=== PATIENT | female | born 1965 | race American Indian/Alaskan Native ===

== ENCOUNTER 2017-03-31 10:46 | Emergency (ER) | payer MEDICAID ==
[2017-03-31 11:15] VITALS: BP 151/90
[2017-03-31] MEDS ORDERED: MOTRIN PO ONE (11:50)
[2017-03-31] MEDS ORDERED: ZOFRAN ODT PO ONE (11:50)
[2017-03-31] MEDS ORDERED: DELTASONE PO ONE (11:50)
--- NOTE | 2017-03-31 11:50 | Emergency Department Report ---
HPI - General Chief Complaint: Upper Respiratory Infection Time Seen by Provider: 03/31/17 11:26 - HPI HPI: Patient is a 51-year-old female with no prior medical history who presents to ED complaining of nonproductive cough and intermittent, fever, sore throat, runny nose, sneezing 2 days. Patient states she took TheraFlu yesterday that gave her some relief. She denies chest pain, shortness of breath or any other pertinent symptoms ED Past Medical Hx - Past Medical History Additional medical history: sickle cell trait - Surgical History Additional Surgical History: - Social History Smoking Status: Never Smoker Substance Use Type: Alcohol - Medications Home Medications: Home Medications Medication Instructions Recorded Confirmed Last Taken Type D-Methorphan/PE/Acetaminophen 1 each PO BID #20 tablet 03/31/17 Unknown Rx [Tylenol Cold Multi-Symp Caplet] Ibuprofen [Motrin] 800 mg PO Q8HR PRN #20 tablet 03/31/17 Unknown Rx guaiFENesin/DEXTROMETHORPHAN 5 ml PO TID #1 bottle 03/31/17 Unknown Rx [Robitussin Cough-Chest Dm Liq] ED Review of Systems ROS: Stated complaint: VOMITING, SORE THROAT, HEADACHE Other details as noted in HPI Constitutional: denies: chills, fever Eyes: denies: eye pain, eye discharge, vision change ENT: throat pain, congestion. denies: ear pain, dental pain, hearing loss Respiratory: cough. denies: shortness of breath, wheezing Cardiovascular: denies: chest pain, palpitations Endocrine: no symptoms reported Gastrointestinal: vomiting (one episode last night from couging). denies: abdominal pain, nausea, diarrhea Genitourinary: denies: urgency, dysuria, discharge Musculoskeletal: denies: back pain, joint swelling, arthralgia Skin: denies: rash, lesions Neurological: denies: headache, weakness, paresthesias Psychiatric: denies: anxiety, depression Hematological/Lymphatic: denies: easy bleeding, easy bruising Physical Exam - Physical Exam Vital Signs: Vital Signs 03/31/17 11:12 Temperature 98.1 F Pulse Rate 94 H Respiratory 18 Rate Blood Pressure 151/90 O2 Sat by Pulse 98 Oximetry Physical Exam: GENERAL: Alert and oriented x3, no apparent distress, Normal Gait, atraumatic. HEAD: Head is normocephalic and a-traumatic. EYES: Extra ocular muscles are intact. Pupils are equal, round, and reactive to light and accommodation. EARS: symetrical, atraumatic, non tender, ear canal clear and moderate cerumen, tympanic membrance non inflamed. gross auditory nml bilaterally. NOSE: Nose symetrical, Nontender,Nares appeared normal. MOUTH:Mouth is well hydrated and without lesions. Tonsils nonerythematous or swollen, Uvula midline, Tongue not elevated. Mucous membranes are moist. Posterior pharynx clear, no exudate or lesions. Patent airways. NECK: Supple. Non edematous, No lymphadenopathy or thyromegaly. No C-spine tenderness LUNGS: Symetrical with respiration, No wheezing, no rales or crackles, CTAB. HEART: S1, S2 present, regular rate and rhythm without murmur, no rubs, no gallops. Non tender to palpation . SKIN: Warm and dry, No lesions, No ulceration or induration present. ED Course Vital Signs 03/31/17 11:12 Temperature 98.1 F Pulse Rate 94 H Respiratory 18 Rate Blood Pressure 151/90 O2 Sat by Pulse 98 Oximetry ED Medical Decision Making - Medical Decision Making This 21-year-old female presents with upper respiratory infection ED course: Patient received prednisone, Motrin, in ED. Rapid influenza test performed. Rapid influenza AMB negative Discussed findings with patient. Discussed plenty of rest, fluid intake, symptomatic relief. Discussed symptoms may persist for up to 2 weeks Discussed the follow-up with primary care physician. Vital signs are normal patient is afebrile and in no acute distress during ED stay. Discussed proper rest at home and if any worsening symptoms to return to ED Critical care attestation.: If time is entered above; I have spent that time in minutes in the direct care of this critically ill patient, excluding procedure time. ED Disposition Clinical Impression: URI (upper respiratory infection) Qualifiers: URI type: unspecified URI Qualified Code(s): J06.9 - Acute upper respiratory infection, unspecified Disposition: - TO HOME OR SELFCARE Is pt being admited?: No Does the pt Need Aspirin: No Condition: Stable Instructions: Upper Respiratory Infection (ED), Acute Bronchitis (ED), Cold Symptoms (ED) Additional Instructions: Rest, increase her fluids. Follow-up to primary care physician. If your symptoms symptoms worsen please return to ED. Prescriptions: D-Methorphan/PE/Acetaminophen [Tylenol Cold Multi-Symp Caplet] 1 each PO BID # 20 tablet guaiFENesin/DEXTROMETHORPHAN [Robitussin Cough-Chest Dm Liq] 5 ml PO TID #1 bottle Ibuprofen [Motrin] 800 mg PO Q8HR PRN #20 tablet PRN Reason: Pain Referrals: LEOPOLDO WILLIAMSON MD [Referring] - 3-5 Days [facility] [Outside] - 3-5 Days Forms: Work/School Release Form(ED) Time of Disposition: 12:18
[2017-04-01] MEDS ORDERED: NACL ONE (12:10)
== END 2017-03-31 12:25 | disposition home or self-care (01) ==
LOC: ED 10:46
DX: J06.9 Acute upper respiratory infection, unspecified (principal)
CPT/HCPCS: 87400; 99282; J7512; Q0162

== ENCOUNTER 2017-06-18 14:02 | Emergency (ER) | payer MEDICAID ==
[2017-06-18] MEDS ORDERED: TYLENOL PO ONE (14:40)
[2017-06-18] MEDS ORDERED: MOTRIN PO ONE (18:00)
--- NOTE | 2017-06-18 18:00 | Emergency Department Report ---
Blank Doc - Documentation Documentation: Patient is a 51-year-old black female who is presenting with a cough cold congestion and body aches headache sore throat. Patient states the cough is productive of a clear sputum sputum. Patient presented febrile slight tachycardia most like secondary to her fever. Patient is not having nausea vomiting at this time. Patient will have a chest x-ray performed rule out atypical pneumonia as well as a rapid strep test. If these are negative patient most likely has flu or flulike illness.
--- NOTE | 2017-06-18 18:40 | XRay Report ---
FINAL REPORT PROCEDURE: XR CHEST ROUTINE 2V TECHNIQUE: PA and lateral chest radiographs were obtained. CPT 85673 HISTORY: cough COMPARISON: No prior studies are available for comparison. FINDINGS: Heart size upper normal. The pulmonary vasculature appears normal. No evidence of pulmonary edema or pleural effusion. Lungs are mildly hypoventilated. The diaphragms are mildly elevated. There appears to be some minimal basilar atelectasis. There is no dense consolidations effusions or masses identified. No acute bony abnormalities are seen. IMPRESSION: Lungs are hypoventilated. There appears to be some minimal basilar atelectasis. Heart size upper normal. No other abnormalities are identified..
[2017-06-18 19:40] VITALS: BP 127/76
--- NOTE | 2017-06-18 20:28 | Emergency Department Report ---
- General Chief Complaint: Upper Respiratory Infection Stated Complaint: HEADACHE Time Seen by Provider: 06/18/17 17:55 Source: patient Mode of arrival: Ambulatory Limitations: No Limitations - History of Present Illness Initial Comments: This is a 51-year-old female nontoxic, well nourished in appearance, no acute signs of distress presents to the ED with c/o of productive cough, fever, chills , body aches, rhinorrhea, sore throat, nasal congestion x2 days. Patient describes productive cough as yellow mucus production. Patient stated has been in close contact with son that is diagnosed with the flu. Patient denies any recent travels, long car, recent hospital stays. Patient denies any calf pain or calf tenderness. Patient denies any chest pain, short of breath, fever, chills, nausea, vomiting, hemoptysis, numbness, tingling, headache or stiff neck. Patient denies any drug allergies. Patient states allergies to codeine. PMH includes sick cell trait. MD Complaint: fever, cough, sore throat, rhinorrhea, nasal congestion -: days(s) (2) Severity: mild Severity scale (0 -10): 8 Quality: aching Consistency: constant Improves With: nothing Worsens With: nothing Context: sick contacts Associated Symptoms: fever, chills, rhinorrhea, nasal congestion, sore throat, cough. denies: myalgias, diaphoresis, headache, stiff neck, chest pain, shortness of breath, abdominal pain, nausea, vomiting, diarrhea, dysuria, rash, confusion, right sweats, weight loss, epistaxis, hoarseness, ear pain Treatments Prior to Arrival: none - Related Data Previous Rx's Medication Instructions Recorded Last Taken Type D-Methorphan/PE/Acetaminophen 1 each PO BID #20 tablet 03/31/17 Unknown Rx [Tylenol Cold Multi-Symp Caplet] Ibuprofen [Motrin] 800 mg PO Q8HR PRN #20 tablet 03/31/17 Unknown Rx guaiFENesin/DEXTROMETHORPHAN 5 ml PO TID #1 bottle 03/31/17 Unknown Rx [Robitussin Cough-Chest Dm Liq] Azithromycin [Zithromax Z-BEE] 250 mg PO DAILY #6 tablet 06/18/17 Unknown Rx Benzonatate [Tessalon Perle] 100 mg PO Q6H PRN #20 capsule 06/18/17 Unknown Rx Ibuprofen [Motrin] 600 mg PO Q8H PRN #30 tablet 06/18/17 Unknown Rx Oseltamivir [Tamiflu] 75 mg PO BID #14 cap 06/18/17 Unknown Rx Allergies Allergy/AdvReac Type Severity Reaction Status Date / Time codeine AdvReac Nausea Verified 03/31/17 11:14 ED Review of Systems ROS: Stated complaint: HEADACHE Other details as noted in HPI Constitutional: chills, fever Eyes: denies: eye pain, eye discharge, vision change ENT: throat pain. denies: ear pain Respiratory: cough. denies: shortness of breath, wheezing Cardiovascular: denies: chest pain, palpitations Endocrine: no symptoms reported Gastrointestinal: denies: abdominal pain, nausea, diarrhea Genitourinary: denies: urgency, dysuria, discharge Musculoskeletal: denies: back pain, joint swelling, arthralgia Skin: denies: rash, lesions Neurological: denies: headache, weakness, paresthesias Psychiatric: denies: anxiety, depression Hematological/Lymphatic: denies: easy bleeding, easy bruising ED Past Medical Hx - Past Medical History Previous Medical History?: Yes Additional medical history: sickle cell trait - Surgical History Past Surgical History?: Yes Additional Surgical History: - Social History Smoking Status: Never Smoker Substance Use Type: Alcohol - Medications Home Medications: Home Medications Medication Instructions Recorded Confirmed Last Taken Type D-Methorphan/PE/Acetaminophen 1 each PO BID #20 tablet 03/31/17 Unknown Rx [Tylenol Cold Multi-Symp Caplet] Ibuprofen [Motrin] 800 mg PO Q8HR PRN #20 tablet 03/31/17 Unknown Rx guaiFENesin/DEXTROMETHORPHAN 5 ml PO TID #1 bottle 03/31/17 Unknown Rx [Robitussin Cough-Chest Dm Liq] Azithromycin [Zithromax Z-BEE] 250 mg PO DAILY #6 tablet 06/18/17 Unknown Rx Benzonatate [Tessalon Perle] 100 mg PO Q6H PRN #20 capsule 06/18/17 Unknown Rx Ibuprofen [Motrin] 600 mg PO Q8H PRN #30 tablet 06/18/17 Unknown Rx Oseltamivir [Tamiflu] 75 mg PO BID #14 cap 06/18/17 Unknown Rx ED Physical Exam - General Limitations: No Limitations General appearance: alert, in no apparent distress - Head Head exam: Present: atraumatic, normocephalic - Eye Eye exam: Present: normal appearance, PERRL, EOMI Pupils: Present: normal accommodation - ENT ENT exam: Present: mucous membranes moist, TM's normal bilaterally, normal external ear exam - Expanded ENT Exam Expanded Ear exam: Present: normal external inspection Mouth exam: Present: normal external inspection, tongue normal. Absent: drooling, trismus, muffled voice, tongue elevation, laceration Teeth exam: Present: normal inspection Throat exam: Positive: tonsillar erythema, other (Uvula midline. No abscess or swelling noted. ). Negative: tonsillomegaly, tonsillar exudate, R peritonsillar mass, L peritonsillar mass - Neck Neck exam: Present: normal inspection, full ROM. Absent: tenderness, meningismus, lymphadenopathy, thyromegaly - Respiratory Respiratory exam: Present: normal lung sounds bilaterally. Absent: respiratory distress, wheezes, rales, rhonchi, stridor, chest wall tenderness, accessory muscle use, decreased breath sounds, prolonged expiratory - Cardiovascular Cardiovascular Exam: Present: regular rate, normal rhythm, normal heart sounds. Absent: irregular rhythm, systolic murmur, diastolic murmur, rubs, gallop - GI/Abdominal GI/Abdominal exam: Present: soft, normal bowel sounds. Absent: distended, tenderness, guarding, rebound, rigid, diminished bowel sounds - Rectal Rectal exam: Present: deferred - Extremities Exam Extremities exam: Present: normal inspection, full ROM, normal capillary refill. Absent: tenderness, pedal edema, joint swelling, calf tenderness - Back Exam Back exam: Present: normal inspection, full ROM. Absent: tenderness, CVA tenderness (R), CVA tenderness (L), muscle spasm, paraspinal tenderness, vertebral tenderness, rash noted - Neurological Exam Neurological exam: Present: alert, oriented X3, CN II-XII intact, normal gait, reflexes normal - Psychiatric Psychiatric exam: Present: normal affect, normal mood - Skin Skin exam: Present: warm, dry, intact, normal color. Absent: rash ED Course Vital Signs 06/18/17 06/18/17 14:36 19:39 Temperature 101.6 F H 98.6 F Pulse Rate 112 H 88 Respiratory 16 18 Rate Blood Pressure 135/88 Blood Pressure 127/76 [Right] O2 Sat by Pulse 96 97 Oximetry - Reevaluation(s) Reevaluation #1: 06/18/17 20:27 Patient is speaking in full sentences with no signs of distress noted. - Consultations Consultation #1: 06/18/17 20:31 Patient has been consulted with Dr. Vogt about patient history, physical exam , and labs and examined and screened patient and agrees to ED plan of care and discharge plan of care. ED Medical Decision Making - Medical Decision Making This is a 51-year-old female that presents with upper respiratory infection and influenza. Patient is stable and was examined by me and Dr. Vogt. Chest x- ray has been obtained and dictated by radiologist with normal exam. Patient is notified of x-ray results with no questions noted. Patient is in close contact with son that is dx with the flu. Due to patient having symptoms of influenza and upper respiratory infection I will treat patient empirically with Tamiflu and zpak. Patient was instructed to increase hydration, rest and take Motrin for fever episodes. Patient received Toradol, Tylenol, and tesslone perrls in the ED. Vitals stable. Patient is nonfebrile and normal heart rate. Patient was orally hydrated and patient tolerated well known nausea or vomiting. Patient was instructed Follow-up with a primary care doctor in 3-5 days or if symptoms worsen and continue return to emergency room as soon as possible. At time time of discharge, the patient does not seem toxic or ill in appearance. No acute signs of distress noted. Patient agrees to discharge treatment plan of care. No further questions noted by the patient. Critical care attestation.: If time is entered above; I have spent that time in minutes in the direct care of this critically ill patient, excluding procedure time. ED Disposition Clinical Impression: Influenza Upper respiratory infection Qualifiers: URI type: unspecified URI Qualified Code(s): J06.9 - Acute upper respiratory infection, unspecified Disposition: DC-01 TO HOME OR SELFCARE Is pt being admited?: No Does the pt Need Aspirin: No Condition: Stable Instructions: Upper Respiratory Infection (ED), Influenza (ED), Azithromycin ( By mouth), Electrolyte Supplement (By mouth), Ibuprofen (By mouth), Benzonatate (By mouth), Oseltamivir (By mouth), Fever in Adults (ED) Additional Instructions: Follow-up with a primary care doctor in 3-5 days or if symptoms worsen and continue return to emergency room as soon as possible. Increase rest, hydration and take Motrin for fever episodes. Prescriptions: Azithromycin [Zithromax Z-BEE] 250 mg PO DAILY #6 tablet Benzonatate [Tessalon Perle] 100 mg PO Q6H PRN #20 capsule PRN Reason: Cough Ibuprofen [Motrin] 600 mg PO Q8H PRN #30 tablet PRN Reason: Fever Oseltamivir [Tamiflu] 75 mg PO BID #14 cap Referrals: PRIMARY CARE, [Primary Care Provider] - 3-5 Days CHOLO ANNA MD [Staff Physician] - 3-5 Days [facility] [Outside] - 3-5 Days [facility] [Outside] - 3-5 Days Forms: Work/School Release Form(ED)
== END 2017-06-18 20:44 | disposition home or self-care (01) ==
LOC: ED 14:02
DX: J11.1 Influenza due to unidentified influenza virus with other respiratory manifestations (principal); Z88.6 Allergy status to analgesic agent
CPT/HCPCS: 71046; 87430; 99283

== ENCOUNTER 2020-05-18 11:21 | Emergency (ER) | payer MEDICAID ==
[2020-05-18 11:32] VITALS: BP 103/61
--- NOTE | 2020-05-18 11:45 | Emergency Department Report ---
ED General Adult HPI - General Chief complaint: Upper Respiratory Infection Stated complaint: COUGH; SORE THROAT Time Seen by Provider: 05/18/20 11:29 Source: patient Mode of arrival: Ambulatory Limitations: No Limitations - History of Present Illness Initial comments: 54-year-old -[place] female patient presents with complaints of cough x1.5 weeks. Patient states the cough is productive of clear sputum and denies any shortness of breath, chest pain, fever/chills/sweats, hemoptysis, or leg pain/swelling. Patient has history of liver cirrhosis secondary to alcohol, however states she no longer consumes alcohol. She denies any heartburn and states the cough does get worse at night. No recent known sick contacts per patient or loss of taste/smell, abdominal pain, or nausea/vomiting/diarrhea. Patient reports OTC medication is not helping. She also states she has a mild sore throat that occurs with the cough Severity scale (0 -10): 0 - Related Data Previous Rx's Medication Instructions Recorded Last Taken Type D-Methorphan/PE/Acetaminophen 1 each PO BID #20 tablet 03/31/17 Unknown Rx [Tylenol Cold Multi-Symp Caplet] Ibuprofen [Motrin] 800 mg PO Q8HR PRN #20 tablet 03/31/17 Unknown Rx Azithromycin [Zithromax Z-BEE] 250 mg PO DAILY #6 tablet 06/18/17 Unknown Rx Benzonatate [Tessalon Perle] 100 mg PO Q6H PRN #20 capsule 06/18/17 Unknown Rx Ibuprofen [Motrin] 600 mg PO Q8H PRN #30 tablet 06/18/17 Unknown Rx Oseltamivir [Tamiflu] 75 mg PO BID #14 cap 06/18/17 Unknown Rx Benzonatate 200 mg PO TID PRN #30 capsule 05/18/20 Unknown Rx Loratadine 10 mg PO QDAY PRN #10 tablet 05/18/20 Unknown Rx guaiFENesin/DEXTROMETHORPHAN 5 ml PO TID #1 bottle 05/18/20 Unknown Rx [Robitussin Cough-Chest Dm Liq] Allergies Allergy/AdvReac Type Severity Reaction Status Date / Time codeine AdvReac Nausea Verified 03/31/17 11:14 ED Review of Systems ROS: Stated complaint: COUGH; SORE THROAT Other details as noted in HPI Constitutional: denies: chills, diaphoresis, fever, malaise, weakness ENT: as per HPI. denies: ear pain Respiratory: cough. denies: shortness of breath Cardiovascular: denies: chest pain Gastrointestinal: denies: abdominal pain, diarrhea Skin: denies: change in color Neurological: denies: headache ED Past Medical Hx - Past Medical History Previous Medical History?: Yes Hx Liver Disease: Yes (cirrhosis) Additional medical history: sickle cell trait - Surgical History Past Surgical History?: Yes Additional Surgical History: - Social History Smoking Status: Never Smoker Substance Use Type: Alcohol - Medications Home Medications: Home Medications Medication Instructions Recorded Confirmed Last Taken Type D-Methorphan/PE/Acetaminophen 1 each PO BID #20 tablet 03/31/17 Unknown Rx [Tylenol Cold Multi-Symp Caplet] Ibuprofen [Motrin] 800 mg PO Q8HR PRN #20 tablet 03/31/17 Unknown Rx Azithromycin [Zithromax Z-BEE] 250 mg PO DAILY #6 tablet 06/18/17 Unknown Rx Benzonatate [Tessalon Perle] 100 mg PO Q6H PRN #20 capsule 06/18/17 Unknown Rx Ibuprofen [Motrin] 600 mg PO Q8H PRN #30 tablet 06/18/17 Unknown Rx Oseltamivir [Tamiflu] 75 mg PO BID #14 cap 06/18/17 Unknown Rx Benzonatate 200 mg PO TID PRN #30 capsule 05/18/20 Unknown Rx Loratadine 10 mg PO QDAY PRN #10 tablet 05/18/20 Unknown Rx guaiFENesin/DEXTROMETHORPHAN 5 ml PO TID #1 bottle 05/18/20 Unknown Rx [Robitussin Cough-Chest Dm Liq] ED Physical Exam - General Limitations: No Limitations General appearance: alert, in no apparent distress - Head Head exam: Present: atraumatic, normocephalic - Eye Eye exam: Present: normal appearance. Absent: scleral icterus - Neck Neck exam: Present: normal inspection - Respiratory Respiratory exam: Present: normal lung sounds bilaterally. Absent: respiratory distress, wheezes, rales, rhonchi, chest wall tenderness - Cardiovascular Cardiovascular Exam: Present: regular rate, normal rhythm. Absent: systolic murmur, diastolic murmur, rubs, gallop - GI/Abdominal GI/Abdominal exam: Present: soft. Absent: tenderness - Extremities Exam Extremities exam: Absent: calf tenderness (no swelling noted bilaterally ) - Back Exam Back exam: Present: full ROM - Neurological Exam Neurological exam: Present: alert, oriented X3 - Psychiatric Psychiatric exam: Present: normal affect, normal mood - Skin Skin exam: Present: warm, dry, intact, normal color. Absent: rash ED Course Vital Signs 05/18/20 11:28 Temperature 98.1 F Pulse Rate 76 Respiratory 18 Rate Blood Pressure 103/61 [Right] O2 Sat by Pulse 100 Oximetry ED Medical Decision Making - Radiology Data Radiology results: report reviewed CHEST 2 VIEWS INDICATION / CLINICAL INFORMATION: Productive cough for 2 weeks. COMPARISON: 06/18/17. FINDINGS: SUPPORT DEVICES: None. HEART / MEDIASTINUM: The heart size is borderline. Pulmonary vasculature is normal. LUNGS / PLEURA: No significant pulmonary or pleural abnormality. No pneumothorax. ADDITIONAL FINDINGS: No significant additional findings. IMPRESSION: No acute abnormality or significant change. No evidence of pneumonia. - Medical Decision Making 54-year-old -[place] female patient presents with complaints of cough x1.5 weeks. Patient states the cough is productive of clear sputum and denies any shortness of breath, chest pain, fever/chills/sweats, hemoptysis, or leg pain/swelling. Patient has history of liver cirrhosis secondary to alcohol, however states she no longer consumes alcohol. She denies any heartburn and states the cough does get worse at night. No recent known sick contacts per patient or loss of taste/smell, abdominal pain, or nausea/vomiting/diarrhea. Patient reports OTC medication is not helping. She also states she has a mild sore throat that occurs with the cough Lung exam is normal. Chest x-ray is negative for any acute abnormalities. Vitals are normal and patient is well-appearing and stable for discharge home. Will treat for viral URI with loratadine, benzonatate, and guaifenesin/dextromethorphan. Recommend follow-up with primary care in 3 to 5 days. Discussed strict return precautions in detail with patient who verbalizes understanding. Critical care attestation.: If time is entered above; I have spent that time in minutes in the direct care of this critically ill patient, excluding procedure time. ED Disposition Clinical Impression: Cough Disposition: DC-01 TO HOME OR SELFCARE Is pt being admited?: No Condition: Stable Instructions: Viral Respiratory Infection Prescriptions: Benzonatate 200 mg PO TID PRN #30 capsule PRN Reason: Cough Loratadine 10 mg PO QDAY PRN #10 tablet PRN Reason: Cough guaiFENesin/DEXTROMETHORPHAN [Robitussin Cough-Chest Dm Liq] 5 ml PO TID #1 bottle Referrals: [facility] [Provider Group] - 3-5 Days
--- NOTE | 2020-05-18 11:52 | XRay Report ---
CHEST 2 VIEWS INDICATION / CLINICAL INFORMATION: Productive cough for 2 weeks. COMPARISON: 06/18/17. FINDINGS: SUPPORT DEVICES: None. HEART / MEDIASTINUM: The heart size is borderline. Pulmonary vasculature is normal. LUNGS / PLEURA: No significant pulmonary or pleural abnormality. No pneumothorax. ADDITIONAL FINDINGS: No significant additional findings. IMPRESSION: No acute abnormality or significant change. No evidence of pneumonia. Signer Name: Fredrick Baez MD Signed: 05/18/2020 11:47 AM Workstation Name: [id number]
== END 2020-05-18 13:05 | disposition home or self-care (01) ==
LOC: ED 11:21
DX: R05 Cough (principal); J02.9 Acute pharyngitis, unspecified; Z98.890 Other specified postprocedural states; Z79.1 Long term (current) use of non-steroidal anti-inflammatories (NSAID); Z79.2 Long term (current) use of antibiotics; Z79.899 Other long term (current) drug therapy; Z88.8 Allergy status to other drugs, medicaments and biological substances
CPT/HCPCS: 71046

== ENCOUNTER 2021-09-27 02:11 | Inpatient (IN) | payer MEDICAID ==
[2021-09-27] MEDS ORDERED: ASPIRIN 325 MG TAB PO ONE (02:28)
[2021-09-27] MEDS ORDERED: ONDANSETRON 4 MG/2 ML INJ IV ONE ×2 (02:52→07:03)
[2021-09-27] MEDS ORDERED: SODIUM CHLORIDE 0.9% 1000 ML 1,000 ML IV ONE (02:52)
[2021-09-27] MEDS ORDERED: PANTOPRAZOLE 40 MG INJ IV ONE (02:52)
[2021-09-27] MEDS ORDERED: PANTOPRAZOLE 80 MG in SODIUM CHLORIDE 0.9% 100 ML IV ONE (02:52)
[2021-09-27 02:54] LABS: Basophils # (Auto) 0.1 K/mm3 (0.0-0.1); Basophils % (Auto) 0.8 % (0.0-1.8); Eosinophils # (Auto) 0.2 K/mm3 (0.0-0.4); Eosinophils % (Auto) 1.9 % (0.0-4.3); Hematocrit 32.3 % (30.3-42.9); Hemoglobin 11.1 gm/dl (10.1-14.3); Lymphocytes # (Auto) 2.3 K/mm3 (1.2-5.4); Lymphocytes % (Auto) 25.8 % (13.4-35.0); Mean Corpuscular HGB Conc 34 % (30-34); Mean Corpuscular Volume 95 fl (79-97); Monocytes # (Auto) 0.7 K/mm3 (0.0-0.8); Monocytes % (Auto) 7.6 % (0.0-7.3); Platelet Count 115 K/mm3 (140-440); Red Blood Count 3.42 M/mm3 (3.65-5.03); Red Cell Distribution Width 14.8 % (13.2-15.2)
[2021-09-27 03:13] LABS: Alanine Aminotransferase 22 units/L (7-56); Albumin 3.4 g/dL (3.9-5); Blood Urea Nitrogen 6 mg/dL (7-17); Calcium 8.4 mg/dL (8.4-10.2); Hemolysis Index 3
--- NOTE | 2021-09-27 03:14 | XRay Report ---
XR chest routine 2V INDICATION / CLINICAL INFORMATION: chest pain. COMPARISON: 05/18/2020 FINDINGS: SUPPORT DEVICES: None. HEART /PULMONARY VASCULATURE: No significant abnormality. LUNGS / PLEURA: No significant pulmonary or pleural abnormality. No pneumothorax. ADDITIONAL FINDINGS: No significant additional findings. IMPRESSION: 1. No acute findings. Signer Name: Ravinder Haynes MD Signed: 09/27/2021 3:10 AM Workstation Name: [id number]
[2021-09-27 03:22] LABS: BUN/Creatinine Ratio 9
[2021-09-27 03:40] LABS: INR 1.58 (0.87-1.13)
--- NOTE | 2021-09-27 04:43 | Emergency Department Report ---
ED General Adult HPI - General Chief complaint: Chest Pain Stated complaint: VOMITING BLOOD, CHEST POUNDING Time Seen by Provider: 09/27/21 02:51 Source: patient Mode of arrival: Ambulatory Limitations: No Limitations - History of Present Illness Initial comments: 55 years old AAF with alcoholic liver cirrhosis here today for vomiting blood, her son 2 days ago in shooting accident and started drinking again since then , has been vomiting red blood with pain in her stomach and chest , no fever no rash , no black stool and no bleeding epr rectum -: Gradual, days(s) Location: abdomen Associated Symptoms: chest pain. denies: denies other symptoms, confusion, headaches, loss of appetite, malaise, nausea/vomiting Treatments Prior to Arrival: none - Related Data Previous Rx's Medication Instructions Recorded Last Taken Type D-Methorphan/PE/Acetaminophen 1 each PO BID #20 tablet 03/31/17 Unknown Rx [Tylenol Cold Multi-Symp Caplet] Ibuprofen [Motrin] 800 mg PO Q8HR PRN #20 tablet 03/31/17 Unknown Rx Azithromycin [Zithromax Z-BEE] 250 mg PO DAILY #6 tablet 06/18/17 Unknown Rx Benzonatate [Tessalon Perle] 100 mg PO Q6H PRN #20 capsule 06/18/17 Unknown Rx Ibuprofen [Motrin] 600 mg PO Q8H PRN #30 tablet 06/18/17 Unknown Rx Oseltamivir [Tamiflu] 75 mg PO BID #14 cap 06/18/17 Unknown Rx Benzonatate 200 mg PO TID PRN #30 capsule 05/18/20 Unknown Rx Loratadine 10 mg PO QDAY PRN #10 tablet 05/18/20 Unknown Rx guaiFENesin/DEXTROMETHORPHAN 5 ml PO TID #1 bottle 05/18/20 Unknown Rx [Robitussin Cough-Chest Dm Liq] Allergies Allergy/AdvReac Type Severity Reaction Status Date / Time codeine AdvReac Nausea Verified 03/31/17 11:14 ED Review of Systems ROS: Stated complaint: VOMITING BLOOD, CHEST POUNDING Other details as noted in HPI Constitutional: denies: chills, fever Eyes: denies: eye pain, eye discharge, vision change ENT: denies: ear pain, throat pain Respiratory: denies: cough, shortness of breath, wheezing Cardiovascular: denies: chest pain, palpitations Endocrine: no symptoms reported Gastrointestinal: denies: abdominal pain, nausea, diarrhea Genitourinary: denies: urgency, dysuria, discharge Musculoskeletal: denies: back pain, joint swelling, arthralgia Skin: denies: rash, lesions Neurological: denies: headache, weakness, paresthesias Psychiatric: denies: anxiety, depression Hematological/Lymphatic: denies: easy bleeding, easy bruising ED Past Medical Hx - Past Medical History Hx Liver Disease: Yes (cirrhosis) Additional medical history: sickle cell trait - Surgical History Additional Surgical History: - Social History Smoking Status: Never Smoker Substance Use Type: Alcohol - Medications Home Medications: Home Medications Medication Instructions Recorded Confirmed Last Taken Type D-Methorphan/PE/Acetaminophen 1 each PO BID #20 tablet 03/31/17 Unknown Rx [Tylenol Cold Multi-Symp Caplet] Ibuprofen [Motrin] 800 mg PO Q8HR PRN #20 tablet 03/31/17 Unknown Rx Azithromycin [Zithromax Z-BEE] 250 mg PO DAILY #6 tablet 06/18/17 Unknown Rx Benzonatate [Tessalon Perle] 100 mg PO Q6H PRN #20 capsule 06/18/17 Unknown Rx Ibuprofen [Motrin] 600 mg PO Q8H PRN #30 tablet 06/18/17 Unknown Rx Oseltamivir [Tamiflu] 75 mg PO BID #14 cap 06/18/17 Unknown Rx Benzonatate 200 mg PO TID PRN #30 capsule 05/18/20 Unknown Rx Loratadine 10 mg PO QDAY PRN #10 tablet 05/18/20 Unknown Rx guaiFENesin/DEXTROMETHORPHAN 5 ml PO TID #1 bottle 05/18/20 Unknown Rx [Robitussin Cough-Chest Dm Liq] ED Physical Exam - General Limitations: No Limitations General appearance: alert, other (actively vomiting ) - Head Head exam: Present: atraumatic, normocephalic - Eye Eye exam: Present: normal appearance - ENT ENT exam: Present: mucous membranes moist - Neck Neck exam: Present: normal inspection - Respiratory Respiratory exam: Present: normal lung sounds bilaterally. Absent: respiratory distress - Cardiovascular Cardiovascular Exam: Present: normal rhythm, tachycardia. Absent: systolic murmur, diastolic murmur, rubs, gallop - GI/Abdominal GI/Abdominal exam: Present: soft, normal bowel sounds - Extremities Exam Extremities exam: Present: normal inspection - Back Exam Back exam: Present: normal inspection - Neurological Exam Neurological exam: Present: alert, oriented X3 - Psychiatric Psychiatric exam: Present: normal affect, normal mood - Skin Skin exam: Present: warm, dry, intact, pallor. Absent: rash ED Course Vital Signs 09/27/21 09/27/21 02:29 04:18 Temperature 97.5 F L Pulse Rate 118 H Respiratory 16 Rate Blood Pressure 137/78 O2 Sat by Pulse 96 98 Oximetry ED Medical Decision Making - Lab Data Result diagrams: 09/27/21 02:37 09/27/21 02:37 - EKG Data -: EKG Interpreted by Vt EKG shows normal: sinus rhythm - EKG Data Interpretation: nonspecific ST-T wave zari - Radiology Data Radiology results: report reviewed, image reviewed - Medical Decision Making vital stable , vomited about half of bag of emesis blood, heme positive rectal heme negative, H.H stable started on PPI bolus and drip , typed and screened , will get GI consult and admit for GI bleed Critical care attestation.: If time is entered above; I have spent that time in minutes in the direct care of this critically ill patient, excluding procedure time. ED Disposition Clinical Impression: Hematemesis Disposition: ADMITTED INPATIENT Is pt being admited?: Yes Does the pt Need Aspirin: No Condition: Fair Referrals: MAKI NASCIMENTO MD [Primary Care Provider] - 3-5 Days
[2021-09-27] MEDS ORDERED: OCTREOTIDE 50 MCG/1 ML INJ IV ONE (04:45)
[2021-09-27 04:59] LABS: Basophils % (Auto) 0.5 % (0.0-1.8); Eosinophils # (Auto) 0.1 K/mm3 (0.0-0.4); Eosinophils % (Auto) 0.8 % (0.0-4.3); Hematocrit 29.3 % (30.3-42.9); Hemoglobin 10.3 gm/dl (10.1-14.3); Lymphocytes # (Auto) 1.1 K/mm3 (1.2-5.4); Lymphocytes % (Auto) 14.2 % (13.4-35.0); Mean Corpuscular HGB Conc 35 % (30-34); Mean Corpuscular Volume 95 fl (79-97); Monocytes # (Auto) 0.6 K/mm3 (0.0-0.8); Monocytes % (Auto) 7.3 % (0.0-7.3); Platelet Count 100 K/mm3 (140-440); Red Blood Count 3.08 M/mm3 (3.65-5.03); Red Cell Distribution Width 14.8 % (13.2-15.2)
[2021-09-27] MEDS: OCTREOTIDE 500 MCG in SODIUM CHLORIDE 0.9% 100 ML IV SCH ×2 (06:04→22:05)
[2021-09-27] MEDS ORDERED: ONDANSETRON 4 MG/2 ML INJ ONE (07:00)
[2021-09-27] MEDS ORDERED: SODIUM CHLORIDE 0.9% 500 ML 500 ML IV SCH (07:30)
[2021-09-27 07:50] LABS: Basophils # (Auto) 0.1 K/mm3 (0.0-0.1); Basophils % (Auto) 0.6 % (0.0-1.8); Eosinophils % (Auto) 0.4 % (0.0-4.3); Hematocrit 25.2 % (30.3-42.9); Hemoglobin 8.5 gm/dl (10.1-14.3); Lymphocytes # (Auto) 3.7 K/mm3 (1.2-5.4); Lymphocytes % (Auto) 31.9 % (13.4-35.0); Mean Corpuscular HGB Conc 34 % (30-34); Mean Corpuscular Volume 95 fl (79-97); Monocytes # (Auto) 0.7 K/mm3 (0.0-0.8); Monocytes % (Auto) 6.5 % (0.0-7.3); Platelet Count 104 K/mm3 (140-440); Red Blood Count 2.65 M/mm3 (3.65-5.03); Red Cell Distribution Width 14.6 % (13.2-15.2)
[2021-09-27] MEDS: METOCLOPRAMIDE 10 MG/2 ML INJ IV PRN ×3 (08:18→19:44)
--- NOTE | 2021-09-27 08:23 | History and Physical Report ---
History of Present Illness Date of examination: 09/27/21 Date of admission: 09/27/2021 Chief complaint: Hematemesis History of present illness: 55-year-old female with past medical history of liver cirrhosis and alcohol dependence presenting to our facility for hematemesis x5 episodes associated with nausea and abdominal pain. Patient states that she had filled keshawn roximately 3 "green bags" with bloody emesis. She states that the last episode she had dark black emesis. Patient states that she has a longstanding history of alcoholism. She resumed drinking alcohol yesterday drinking approximately 4 beers citing a personal tragedy in the family (son ). Remainder of ROS negative except for stated above. Patient has a prior history of EGD. She does not remember findings from EGD but states that she does not want another procedure given her issues with swallowing. I explained to the patient that given her concerning presentation and rapid drop in hemoglobin, I strongly recommend she undergo EGD when approached by our marker machine attendant. PMHx: Esophageal varices, liver cirrhosis, alcoholism, sickle cell trait PSHx: FHx: Reviewed noncontributory SHx: Tobacco use-never smoker ETOH Use-admit, extensive use Recreational Drug Use-denies Follows with Dr. Chavarria for GI care Recent personal tragedy, son from [facility]. Medications and Allergies Allergies Allergy/AdvReac Type Severity Reaction Status Date / Time codeine AdvReac Nausea Verified 03/31/17 11:14 Home Medications Medication Instructions Recorded Confirmed Last Taken Type D-Methorphan/PE/Acetaminophen 1 each PO BID #20 tablet 03/31/17 Unknown Rx [Tylenol Cold Multi-Symp Caplet] Ibuprofen [Motrin] 800 mg PO Q8HR PRN #20 tablet 03/31/17 Unknown Rx Azithromycin [Zithromax Z-BEE] 250 mg PO DAILY #6 tablet 06/18/17 Unknown Rx Benzonatate [Tessalon Perle] 100 mg PO Q6H PRN #20 capsule 06/18/17 Unknown Rx Ibuprofen [Motrin] 600 mg PO Q8H PRN #30 tablet 06/18/17 Unknown Rx Oseltamivir [Tamiflu] 75 mg PO BID #14 cap 06/18/17 Unknown Rx Benzonatate 200 mg PO TID PRN #30 capsule 05/18/20 Unknown Rx Loratadine 10 mg PO QDAY PRN #10 tablet 05/18/20 Unknown Rx guaiFENesin/DEXTROMETHORPHAN 5 ml PO TID #1 bottle 05/18/20 Unknown Rx [Robitussin Cough-Chest Dm Liq] Escitalopram [Lexapro] 5 mg PO QDAY #30 09/27/21 Unknown Rx traZODone [Desyrel] 50 mg PO QHS #30 tab 09/27/21 Unknown Rx Active Meds: Active Medications Pantoprazole Sodium 80 mg/ (Sodium Chloride) 100 mls @ 10 mls/hr IV ONCE ONE Stop: 09/27/21 12:51 Last Admin: 09/27/21 03:54 Dose: 8 mg/hr, 10 mls/hr Octreotide Acetate 500 mcg/ (Sodium Chloride) 101 mls @ 5.05 mls/hr IV TITR RAJESH; Protocol Last Admin: 09/27/21 06:04 Dose: 25 mcg/hr, 5.05 mls/hr Sodium Chloride (Nacl 0.9% 500 Ml) 500 mls @ 0 mls/hr IV ONCE@0730 RAJESH Stop: 09/27/21 11:00 Last Admin: 09/27/21 07:30 Dose: 500 mls/hr Ceftriaxone Sodium (Rocephin/Ns 1 Gm/50 Ml) 1 gm in 50 mls @ 100 mls/hr IV Q24H RAJESH; Protocol Metoclopramide HCl (Metoclopramide 10 Mg/2 Ml Inj) 5 mg IV Q6H PRN PRN Reason: Nausea And Vomiting Last Admin: 09/27/21 08:18 Dose: 5 mg Review of Systems All systems: negative (Except for noted in HPI) Exam - Physical Exam Narrative exam: Physical Exam: VITAL SIGNS: Reviewed. GENERAL: The patient appears normally developed, Vital signs as documented. Mild distress HEAD: No signs of head trauma. EYES: Pupils are equal. Extraocular motions intact. EARS: Hearing grossly intact. MOUTH: Dried blood in oropharynx NECK: No adenopathy, no JVD. CHEST: Chest with clear breath sounds bilaterally. No wheezes, rales, or rhonchi. CARDIAC: Regular rate and rhythm. S1 and S2, without murmurs, gallops, or rubs. VASCULAR: No Edema. Peripheral pulses normal and equal in all extremities. ABDOMEN: Soft, non tender and non distended. No rebound or guarding, and no masses palpated. Bowel Sounds normal. MUSCULOSKELETAL: Good range of motion of all major joints. Extremities without clubbing, cyanosis or edema. NEUROLOGIC EXAM: Alert and oriented x 4. no focal sensory or strength deficits. PSYCHIATRIC: Depressed mood SKIN: detail exam as documented in skin assessment - Constitutional Vitals: Temp Pulse Resp BP Pulse Ox 98.9 F 110 H 18 126/65 99 09/27/21 07:15 09/27/21 07:39 09/27/21 07:39 09/27/21 07:39 09/27/21 07:39 HEART Score - HEART Score Troponin: Troponin T < 0.010 ng/mL (0.00-0.029) 09/27/21 05:08 Results - Labs CBC & Chem 7: 09/27/21 Unknown 09/27/21 02:37 Labs: Laboratory Last Values WBC 11.5 K/mm3 (4.5-11.0) H 09/27/21 Unknown RBC 2.65 M/mm3 (3.65-5.03) L 09/27/21 Unknown Hgb 8.5 gm/dl (10.1-14.3) L 09/27/21 Unknown Hct 25.2 % (30.3-42.9) L 09/27/21 Unknown MCV 95 fl (79-97) 09/27/21 Unknown MCH 32 pg (28-32) 09/27/21 Unknown MCHC 34 % (30-34) 09/27/21 Unknown RDW 14.6 % (13.2-15.2) 09/27/21 Unknown Plt Count 104 K/mm3 (140-440) L 09/27/21 Unknown Lymph % (Auto) 31.9 % (13.4-35.0) 09/27/21 Unknown [place] % (Auto) 6.5 % (0.0-7.3) 09/27/21 Unknown Eos % (Auto) 0.4 % (0.0-4.3) 09/27/21 Unknown Baso % (Auto) 0.6 % (0.0-1.8) 09/27/21 Unknown Lymph # (Auto) 3.7 K/mm3 (1.2-5.4) 09/27/21 Unknown [place] # (Auto) 0.7 K/mm3 (0.0-0.8) 09/27/21 Unknown Eos # (Auto) 0.0 K/mm3 (0.0-0.4) 09/27/21 Unknown Baso # (Auto) 0.1 K/mm3 (0.0-0.1) 09/27/21 Unknown Seg Neutrophils % 60.6 % (40.0-70.0) 09/27/21 Unknown Seg Neutrophils # 7.0 K/mm3 (1.8-7.7) 09/27/21 Unknown PT 20.8 Sec. (12.2-14.9) H 09/27/21 03:01 INR 1.58 (0.87-1.13) H 09/27/21 03:01 Sodium 139 mmol/L (137-145) 09/27/21 02:37 Potassium 3.3 mmol/L (3.6-5.0) L 09/27/21 02:37 Chloride 104.7 mmol/L (98-107) 09/27/21 02:37 Carbon Dioxide 22 mmol/L (22-30) 09/27/21 02:37 Anion Gap 16 mmol/L 09/27/21 02:37 BUN 6 mg/dL (7-17) L 09/27/21 02:37 Creatinine 0.7 mg/dL (0.6-1.2) 09/27/21 02:37 Estimated GFR > 60 ml/min 09/27/21 02:37 BUN/Creatinine Ratio 9 % 09/27/21 02:37 Glucose 121 mg/dL (65-100) H 09/27/21 02:37 Calcium 8.4 mg/dL (8.4-10.2) 09/27/21 02:37 Total Bilirubin 2.40 mg/dL (0.1-1.2) H 09/27/21 02:37 AST 74 units/L (5-40) H 09/27/21 02:37 ALT 22 units/L (7-56) 09/27/21 02:37 Alkaline Phosphatase 145 units/L (35-129) H 09/27/21 02:37 Ammonia 112.0 umol/L (25-60) H 09/27/21 03:01 Troponin T < 0.010 ng/mL (0.00-0.029) 09/27/21 05:08 Total Protein 7.0 g/dL (6.3-8.2) 09/27/21 02:37 Albumin 3.4 g/dL (3.9-5) L 09/27/21 02:37 Albumin/Globulin Ratio 0.9 % 09/27/21 02:37 Lipase 56 units/L (13-60) 09/27/21 03:01 Plasma/Serum Alcohol 0.14 % (0-0.07) H 09/27/21 03:54 Blood Type O POSITIVE 09/27/21 03:01 Antibody Screen Negative 09/27/21 03:01 Crossmatch See Detail 09/27/21 03:01 Assessment and Plan Assessment and plan: Assessment and plan #Hematemesis -Concern for active bleeding varices given history of liver cirrhosis and alcohol use -2 large-bore IV access, IV fluids, 1 unit PRBC administered - zofran prn Gastroenterology consultation for urgent endoscopy, report from egd notes bleeding varices, banded. -Critical care consultation, discussed with Dr. Quinteros, will need ICU level monitoring - serial h/h ordered #Esophageal varices with active bleed s/p EGD and variceal band ligation - octreotide IV, protonix gtt - rocephin IV - EGD completed by Dr. Morrison, band ligation of distal varices #Blood loss anemia - from varices, has history of sickle cell trait - 1 unit prbc ordered - transfuse prn hgb < 7 - serial H/H ordered #Acute decompensated liver failure - alcohol related - elevated bilirubin, thrombocytopenia, elevated transaminases. INR: 1.58. -AST: 74, ALT: 22 - ammonia: 112. not currently encephalopathic - avoid hepatotoxic agents. - trend hepatic indices daily #SIRS POA - mild leukocytosis , tachycardic - likely reactive from bleeding varices. #Liver cirrhosis - patient of Dr. Chavarria, Dr Morrison currently following #Alcohol dependence +15 min behavioral health counseling on alcohol abuse and benefits of cessation - CIMO protocol - alcohol level: 0.14. #Hypokalemia - replace IV. - trend on renal panel #Depression Recently loss of son We will get behavioral health to evaluate patient - lexapro started by psych #Sickle cell trait - noted #Preventative health care - preventative health counseling regarding management of life stressors, medication compliance and overall effect of chronic medical conditions on overall health. Encourage patient to follow up closely with with OP providers +15 minutes. The high probability of a clinically significant, sudden or life threatening deterioration of the [gi, hepatic] system(s) required my full and direct attention, intervention and personal management. The aggregate critical care time was [90] minutes. This time is in addition to time spent performing reported procedures but includes the following: [x] Data Review and interpretation [x] Patient assessment and monitoring of vital signs [x] Documentation [x] Medication orders and management
[2021-09-27] MEDS ORDERED: ACETAMINOPHEN 650 MG RECT SUPP PR PRN (08:30)
[2021-09-27] MEDS ORDERED: MORPHINE 2 MG/1 ML INJ IV PRN (08:30)
[2021-09-27] MEDS ORDERED: LORazepam 2 MG/ML VIAL IV PRN ×2 (08:30)
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
[2021-09-27] MEDS: cefTRIAXone/NS 1 GM/50 ML 1 GM/50 ML BAG IV SCH (09:25)
[2021-09-27] MEDS: SODIUM CHLORIDE 0.9% 1000 ML 1,000 ML IV SCH ×2 (10:00→19:47)
--- NOTE | 2021-09-27 10:14 | Electrocardiograph Report ---
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
[2021-09-27] MEDS ORDERED: EPINEPHrine 1 MG/10 ML SYRINGE ONE (10:37)
[2021-09-27] MEDS ORDERED: MIDAZOLAM 2 MG/2 ML INJ ONE (10:44)
[2021-09-27] MEDS ORDERED: LIDOCAINE MPF (2%) 20 MG/1 ML VIAL 5 ML ONE (10:44)
[2021-09-27] MEDS ORDERED: KETAMINE/STERILE WATER 50 MG/ML SYRINGE ONE (10:45)
[2021-09-27] MEDS ORDERED: propofoL 200 MG/20 ML VIAL IV ONE ×2 (10:45→10:49)
--- NOTE | 2021-09-27 11:33 | Anesthesia Day of Surgery ---
Anesthesia Day of Surgery - Day of Surgery Patient Examined: Yes Patient H&P Reviewed: Yes Patient is NPO: Yes
--- NOTE | 2021-09-27 11:35 | Anesthesia Consultation ---
Anesthesia Consult and Med Hx Date of service: 09/27/21 - Airway Anesthetic Teeth Evaluation: Poor ROM Head & Neck: Adequate Mental/Hyoid Distance: Adequate Mallampati Class: Class II Intubation Access Assessment: Probably Good - Pulmonary Exam CTA: Yes - Cardiac Exam Cardiac Exam: RRR Anesthetic Concerns: tachycardia - Pre-Operative Health Status ASA Pre-Surgery Classification: ASA4, Emergency Proposed Anesthetic Plan: MAC - Endocrine Hx Liver Disease: Yes (cirrhosis) - Other Systems Hx Alcohol Use: Yes
--- NOTE | 2021-09-27 12:03 | Post Operative Note ---
Pre-op diagnosis: Hematemesis Post-op diagnosis: other (Esophageal varices with active bleed) Findings: 1. Distal esophageal varices that were initially not bleeding. One of them had a fibrin plug on it. On loading the banding device and reintroducing the scope, the varix was noted to be actively oozing blood. A total of 2 variceal bands were placed with hemostasis achieved. 2. Normal stomach. There was fresh blood noted scattered around inside the stomach lumen 3. Normal duodenal bulb and duodenum Procedure: EGD with variceal band ligation Anesthesia: MAC Surgeon: GREG AUSTIN Estimated blood loss: minimal Pathology: none Condition: stable Disposition: ICU (Continue octreotide drip x48 hours, and monitor hemoglobin and hematocrit and transfuse as needed. I will try and contact Dr. Chavarria to transition care to him)
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
--- NOTE | 2021-09-27 12:45 | Consultation ---
History of Present Illness - Reason for Consult Consult date: 09/27/21 Reason for consult: depression - History of Present Psychiatric Illness The patient was seen today. She says she was admitted for cirrhosis of the liver and started back drinking. The patient says her son was killed two days ago, and this started her back to drinking. She says she hasn't been sleeping. The patient denies SI/HI. She says "just depressed, but not suicidal." She denies having any past psych history or ever being on any psych meds. The patient denies any substance abuse outside of alcohol. She denies hallucinations of any kind. The patient is interested in something for depression and sleep. PAST PSYCHIATRIC HISTORY Diagnoses: Denies Suicide attempts or Self-harm behavior: Denies Prior psychiatric hospitalizations: Denies Substance Abuse history: Alcohol Previous psychiatric medications tried: Denies Outpatient treatment: Denies PAST MEDICAL HISTORY: None reported Family Psychiatric History: None reported or documented SOCIAL HISTORY Marital Status: Living Arrangements: with spouse Employment Status: Disabled Access to guns/weapons: Denies Education: History of Abuse: Denies Legal History: Denies REVIEW OF SYSTEMS Constitutional: Negative for weight loss ENT: Negative for stridor Respiratory: Negative for cough or hemoptysis All other systems reviewed and are negative MENTAL STATUS EXAMINATION General Appearance and Behavior: Age appropriate, good hygiene, wearing appropriate clothes, good eye contact, calm, cooperative, polite Cooperation: Cooperative Psychomotor Behavior: Psychomotor normal Mood: depressed Affect and affective range: congruent with stated mood Thought Process: goal directed Thought Content: None Speech: normal tone and pace Suicidal Ideation: Denies Homicidal Ideation: Denies Hallucinations: Denies Delusions: None elicited Impulse Control: Limited Insight and Judgment: Limited insight and judgment Memory: Limited Attention: attentive Orientation: Alert, oriented Assessment and Plan Major Depressive Disorder Treatment Plan Lexapro 5mg po daily Trazodone 50mg po qhs Scripts placed in the patient's chart Agree with [facility] Medical: per primary Sitter: defer to primary Disposition: Do not recommend acute psychiatric inpatient treatment The clinical research physician to give the patient outpatient resources to establish outpatient psychiatric care The patient to follow in 7 to 14 days upon discharge She is to abstain from alcohol Will sign off. Thank you Case staffed with Dr. Maxwell. Medications and Allergies Allergies Allergy/AdvReac Type Severity Reaction Status Date / Time codeine AdvReac Nausea Verified 03/31/17 11:14 Home Medications Medication Instructions Recorded Confirmed Last Taken Type D-Methorphan/PE/Acetaminophen 1 each PO BID #20 tablet 03/31/17 Unknown Rx [Tylenol Cold Multi-Symp Caplet] Ibuprofen [Motrin] 800 mg PO Q8HR PRN #20 tablet 03/31/17 Unknown Rx Azithromycin [Zithromax Z-BEE] 250 mg PO DAILY #6 tablet 06/18/17 Unknown Rx Benzonatate [Tessalon Perle] 100 mg PO Q6H PRN #20 capsule 06/18/17 Unknown Rx Ibuprofen [Motrin] 600 mg PO Q8H PRN #30 tablet 06/18/17 Unknown Rx Oseltamivir [Tamiflu] 75 mg PO BID #14 cap 06/18/17 Unknown Rx Benzonatate 200 mg PO TID PRN #30 capsule 05/18/20 Unknown Rx Loratadine 10 mg PO QDAY PRN #10 tablet 05/18/20 Unknown Rx guaiFENesin/DEXTROMETHORPHAN 5 ml PO TID #1 bottle 05/18/20 Unknown Rx [Robitussin Cough-Chest Dm Liq] Escitalopram [Lexapro] 5 mg PO QDAY #30 09/27/21 Unknown Rx traZODone [Desyrel] 50 mg PO QHS #30 tab 09/27/21 Unknown Rx Active Meds: Active Medications Acetaminophen (Acetaminophen 650 Mg Rect Supp) 650 mg GA Q6H PRN PRN Reason: Pain MILD(1-3)/Fever >100.5/ZACARIAS Pantoprazole Sodium 80 mg/ (Sodium Chloride) 100 mls @ 10 mls/hr IV ONCE ONE Stop: 09/27/21 12:51 Last Admin: 09/27/21 03:54 Dose: 8 mg/hr, 10 mls/hr Octreotide Acetate 500 mcg/ (Sodium Chloride) 101 mls @ 5.05 mls/hr IV TITR RAJESH; Protocol Last Admin: 09/27/21 06:04 Dose: 25 mcg/hr, 5.05 mls/hr Ceftriaxone Sodium (Rocephin/Ns 1 Gm/50 Ml) 1 gm in 50 mls @ 100 mls/hr IV Q24H RAJESH; Protocol Last Admin: 09/27/21 09:25 Dose: 100 mls/hr Sodium Chloride (Nacl 0.9% 1000 Ml) 1,000 mls @ 50 mls/hr IV DIRECT RAJESH Lorazepam (Lorazepam 2 Mg/Ml Vial) 4 mg IV Q1H PRN PRN Reason: CIWA-Ar 16-25 Lorazepam (Lorazepam 2 Mg/Ml Vial) 2 mg IV Q1H PRN PRN Reason: CIWA-Ar 8-15 Metoclopramide HCl (Metoclopramide 10 Mg/2 Ml Inj) 5 mg IV Q6H PRN PRN Reason: Nausea And Vomiting Last Admin: 09/27/21 08:18 Dose: 5 mg Morphine Sulfate (Morphine 2 Mg/1 Ml Inj) 2 mg IV Q4H PRN PRN Reason: Pain, Moderate (4-6) Sodium Chloride (Sodium Chloride 0.9% 10 Ml Flush Syringe) 10 ml IV BID RAJESH Sodium Chloride (Sodium Chloride 0.9% 10 Ml Flush Syringe) 10 ml IV PRN PRN PRN Reason: LINE FLUSH Mental Status Exam - Vital signs Last Vital Signs Temp 98.9 F 09/27/21 07:15 Pulse 121 H 09/27/21 11:31 Resp 21 09/27/21 11:31 BP 118/58 09/27/21 11:31 Pulse Ox 100 09/27/21 11:31 Results Result Diagrams: 09/27/21 Unknown 09/27/21 02:37 Abnormal lab results 09/27/21 09/27/21 09/27/21 Range/Units 02:37 02:37 03:01 WBC (4.5-11.0) K/mm3 RBC 3.42 L (3.65-5.03) M/mm3 Hgb (10.1-14.3) gm/dl Hct (30.3-42.9) % MCH (28-32) pg MCHC (30-34) % Plt Count 115 L (140-440) K/mm3 [place] % (Auto) 7.6 H (0.0-7.3) % Lymph # (Auto) (1.2-5.4) K/mm3 Seg Neutrophils % (40.0-70.0) % PT 20.8 H (12.2-14.9) Sec. INR 1.58 H (0.87-1.13) Potassium 3.3 L (3.6-5.0) mmol/L BUN 6 L (7-17) mg/dL Glucose 121 H (65-100) mg/dL Total Bilirubin 2.40 H (0.1-1.2) mg/dL AST 74 H (5-40) units/L Alkaline Phosphatase 145 H (35-129) units/L Ammonia (25-60) umol/L Albumin 3.4 L (3.9-5) g/dL Plasma/Serum Alcohol (0-0.07) % Crossmatch 09/27/21 09/27/21 09/27/21 Range/Units 03:01 03:01 03:54 WBC (4.5-11.0) K/mm3 RBC (3.65-5.03) M/mm3 Hgb (10.1-14.3) gm/dl Hct (30.3-42.9) % MCH (28-32) pg MCHC (30-34) % Plt Count (140-440) K/mm3 [place] % (Auto) (0.0-7.3) % Lymph # (Auto) (1.2-5.4) K/mm3 Seg Neutrophils % (40.0-70.0) % PT (12.2-14.9) Sec. INR (0.87-1.13) Potassium (3.6-5.0) mmol/L BUN (7-17) mg/dL Glucose (65-100) mg/dL Total Bilirubin (0.1-1.2) mg/dL AST (5-40) units/L Alkaline Phosphatase (35-129) units/L Ammonia 112.0 H (25-60) umol/L Albumin (3.9-5) g/dL Plasma/Serum Alcohol 0.14 H (0-0.07) % Crossmatch See Detail 09/27/21 09/27/21 Range/Units 04:22 Unknown WBC 11.5 H (4.5-11.0) K/mm3 RBC 3.08 L 2.65 L (3.65-5.03) M/mm3 Hgb 8.5 L (10.1-14.3) gm/dl Hct 29.3 L 25.2 L (30.3-42.9) % MCH 33 H (28-32) pg MCHC 35 H (30-34) % Plt Count 100 L 104 L (140-440) K/mm3 [place] % (Auto) (0.0-7.3) % Lymph # (Auto) 1.1 L (1.2-5.4) K/mm3 Seg Neutrophils % 77.2 H (40.0-70.0) % PT (12.2-14.9) Sec. INR (0.87-1.13) Potassium (3.6-5.0) mmol/L BUN (7-17) mg/dL Glucose (65-100) mg/dL Total Bilirubin (0.1-1.2) mg/dL AST (5-40) units/L Alkaline Phosphatase (35-129) units/L Ammonia (25-60) umol/L Albumin (3.9-5) g/dL Plasma/Serum Alcohol (0-0.07) % Crossmatch All other labs normal.
--- NOTE | 2021-09-27 13:33 | Consultation ---
History of Present Illness - Reason for Consult Consult date: 09/27/21 Active GI bleed - History of Present Illness 55 y/o female, ETOH abuse and grieving as her son just passed admitted with up per GI bleed. Past History Social history: alcohol abuse Medications and Allergies Allergies Allergy/AdvReac Type Severity Reaction Status Date / Time codeine AdvReac Nausea Verified 03/31/17 11:14 Home Medications Medication Instructions Recorded Confirmed Last Taken Type D-Methorphan/PE/Acetaminophen 1 each PO BID #20 tablet 03/31/17 Unknown Rx [Tylenol Cold Multi-Symp Caplet] Ibuprofen [Motrin] 800 mg PO Q8HR PRN #20 tablet 03/31/17 Unknown Rx Azithromycin [Zithromax Z-BEE] 250 mg PO DAILY #6 tablet 06/18/17 Unknown Rx Benzonatate [Tessalon Perle] 100 mg PO Q6H PRN #20 capsule 06/18/17 Unknown Rx Ibuprofen [Motrin] 600 mg PO Q8H PRN #30 tablet 06/18/17 Unknown Rx Oseltamivir [Tamiflu] 75 mg PO BID #14 cap 06/18/17 Unknown Rx Benzonatate 200 mg PO TID PRN #30 capsule 05/18/20 Unknown Rx Loratadine 10 mg PO QDAY PRN #10 tablet 05/18/20 Unknown Rx guaiFENesin/DEXTROMETHORPHAN 5 ml PO TID #1 bottle 05/18/20 Unknown Rx [Robitussin Cough-Chest Dm Liq] Escitalopram [Lexapro] 5 mg PO QDAY #30 09/27/21 Unknown Rx traZODone [Desyrel] 50 mg PO QHS #30 tab 09/27/21 Unknown Rx Active Meds: Active Medications Acetaminophen (Acetaminophen 650 Mg Rect Supp) 650 mg DC Q6H PRN PRN Reason: Pain MILD(1-3)/Fever >100.5/ZACARIAS Escitalopram Oxalate (Escitalopram 10 Mg Tab) 5 mg PO QDAY RAJESH Octreotide Acetate 500 mcg/ (Sodium Chloride) 101 mls @ 5.05 mls/hr IV TITR RAJESH; Protocol Last Admin: 09/27/21 06:04 Dose: 25 mcg/hr, 5.05 mls/hr Ceftriaxone Sodium (Rocephin/Ns 1 Gm/50 Ml) 1 gm in 50 mls @ 100 mls/hr IV Q24H RAJESH; Protocol Last Admin: 09/27/21 09:25 Dose: 100 mls/hr Sodium Chloride (Nacl 0.9% 1000 Ml) 1,000 mls @ 50 mls/hr IV DIRECT RAJESH Last Admin: 09/27/21 10:00 Dose: 50 mls/hr Lorazepam (Lorazepam 2 Mg/Ml Vial) 4 mg IV Q1H PRN PRN Reason: CIWA-Ar 16-25 Lorazepam (Lorazepam 2 Mg/Ml Vial) 2 mg IV Q1H PRN PRN Reason: CIWA-Ar 8-15 Metoclopramide HCl (Metoclopramide 10 Mg/2 Ml Inj) 5 mg IV Q6H PRN PRN Reason: Nausea And Vomiting Last Admin: 09/27/21 08:18 Dose: 5 mg Morphine Sulfate (Morphine 2 Mg/1 Ml Inj) 2 mg IV Q4H PRN PRN Reason: Pain, Moderate (4-6) Sodium Chloride (Sodium Chloride 0.9% 10 Ml Flush Syringe) 10 ml IV BID RAJESH Sodium Chloride (Sodium Chloride 0.9% 10 Ml Flush Syringe) 10 ml IV PRN PRN PRN Reason: LINE FLUSH Trazodone HCl (Trazodone 50 Mg Tab) 50 mg PO QHS RAJESH Exam - Constitutional Vitals: Temp Pulse Resp BP Pulse Ox 98.9 F 121 H 22 129/61 100 09/27/21 07:15 09/27/21 13:15 09/27/21 13:15 09/27/21 13:15 09/27/21 13:15 Results - Labs CBC & Chem 7: 09/28/21 03:45 09/28/21 03:45 Labs: Abnormal lab results 09/27/21 09/27/21 09/27/21 Range/Units 02:37 02:37 03:01 WBC (4.5-11.0) K/mm3 RBC 3.42 L (3.65-5.03) M/mm3 Hgb (10.1-14.3) gm/dl Hct (30.3-42.9) % MCH (28-32) pg MCHC (30-34) % Plt Count 115 L (140-440) K/mm3 [place] % (Auto) 7.6 H (0.0-7.3) % Lymph # (Auto) (1.2-5.4) K/mm3 Seg Neutrophils % (40.0-70.0) % PT 20.8 H (12.2-14.9) Sec. INR 1.58 H (0.87-1.13) Potassium 3.3 L (3.6-5.0) mmol/L BUN 6 L (7-17) mg/dL Glucose 121 H (65-100) mg/dL Total Bilirubin 2.40 H (0.1-1.2) mg/dL AST 74 H (5-40) units/L Alkaline Phosphatase 145 H (35-129) units/L Ammonia (25-60) umol/L Albumin 3.4 L (3.9-5) g/dL Plasma/Serum Alcohol (0-0.07) % Crossmatch 09/27/21 09/27/21 09/27/21 Range/Units 03:01 03:01 03:54 WBC (4.5-11.0) K/mm3 RBC (3.65-5.03) M/mm3 Hgb (10.1-14.3) gm/dl Hct (30.3-42.9) % MCH (28-32) pg MCHC (30-34) % Plt Count (140-440) K/mm3 [place] % (Auto) (0.0-7.3) % Lymph # (Auto) (1.2-5.4) K/mm3 Seg Neutrophils % (40.0-70.0) % PT (12.2-14.9) Sec. INR (0.87-1.13) Potassium (3.6-5.0) mmol/L BUN (7-17) mg/dL Glucose (65-100) mg/dL Total Bilirubin (0.1-1.2) mg/dL AST (5-40) units/L Alkaline Phosphatase (35-129) units/L Ammonia 112.0 H (25-60) umol/L Albumin (3.9-5) g/dL Plasma/Serum Alcohol 0.14 H (0-0.07) % Crossmatch See Detail 09/27/21 09/27/21 Range/Units 04:22 Unknown WBC 11.5 H (4.5-11.0) K/mm3 RBC 3.08 L 2.65 L (3.65-5.03) M/mm3 Hgb 8.5 L (10.1-14.3) gm/dl Hct 29.3 L 25.2 L (30.3-42.9) % MCH 33 H (28-32) pg MCHC 35 H (30-34) % Plt Count 100 L 104 L (140-440) K/mm3 [place] % (Auto) (0.0-7.3) % Lymph # (Auto) 1.1 L (1.2-5.4) K/mm3 Seg Neutrophils % 77.2 H (40.0-70.0) % PT (12.2-14.9) Sec. INR (0.87-1.13) Potassium (3.6-5.0) mmol/L BUN (7-17) mg/dL Glucose (65-100) mg/dL Total Bilirubin (0.1-1.2) mg/dL AST (5-40) units/L Alkaline Phosphatase (35-129) units/L Ammonia (25-60) umol/L Albumin (3.9-5) g/dL Plasma/Serum Alcohol (0-0.07) % Crossmatch Assessment and Plan 55 y/o female with esophageal variceal bleed, s/p banding x2 1. Q6 hour H/H's at least for the next 24-6 hours 2. Octreotide drip as ordered by GI 3. CIWA protocol given ETOH use 4. NPO and agree with IVF 5. Empiric abx 6. Guarded prognosis. CCT 31 minutes.
--- NOTE | 2021-09-27 14:16 | Post Anesthesia Evaluation ---
- Post Anesthesia Evaluation Patient Participated: Yes Airway Patent: Yes Stable Respiratory Function: Yes Nausea/Vomiting: No Temp > 96.8F: Yes Pain Manageable: Yes Adequeate Hydration: Yes Anesthesia Complications: No Block Receding Appropriately: Not Applicable Patient on Ventilator: No
[2021-09-27] MEDS: POTASSIUM CHLORIDE 10 MEQ 10 MEQ/100 ML BAG IV SCH ×4 (14:30→19:08)
[2021-09-27] MEDS: ESCITALOPRAM 10 MG TAB PO SCH (17:50)
[2021-09-27 19:31] LABS: Hematocrit 30.1 % (30.3-42.9); Hemoglobin 10.2 gm/dl (10.1-14.3); Mean Corpuscular HGB Conc 34 % (30-34); Mean Corpuscular Volume 97 fl (79-97); Red Blood Count 3.12 M/mm3 (3.65-5.03); Red Cell Distribution Width 14.5 % (13.2-15.2)
[2021-09-27 19:34] LABS: Platelet Count 84 K/mm3 (140-440)
[2021-09-28 00:04] LABS: Hematocrit 27.6 % (30.3-42.9); Hemoglobin 9.3 gm/dl (10.1-14.3)
[2021-09-28 05:16] LABS: Basophils % (Auto) 0.4 % (0.0-1.8); Eosinophils # (Auto) 0.1 K/mm3 (0.0-0.4); Eosinophils % (Auto) 0.5 % (0.0-4.3); Hematocrit 25.5 % (30.3-42.9); Hemoglobin 8.7 gm/dl (10.1-14.3); Lymphocytes # (Auto) 1.8 K/mm3 (1.2-5.4); Lymphocytes % (Auto) 19.4 % (13.4-35.0); Mean Corpuscular HGB Conc 34 % (30-34); Mean Corpuscular Volume 96 fl (79-97); Monocytes # (Auto) 0.9 K/mm3 (0.0-0.8); Monocytes % (Auto) 9.2 % (0.0-7.3); Red Blood Count 2.65 M/mm3 (3.65-5.03); Red Cell Distribution Width 14.5 % (13.2-15.2)
[2021-09-28 05:17] LABS: Platelet Count 75 K/mm3 (140-440)
[2021-09-28 05:26] LABS: INR 1.8 (0.87-1.13)
[2021-09-28 05:28] LABS: Alanine Aminotransferase 18 units/L (7-56); Albumin 2.4 g/dL (3.9-5); BUN/Creatinine Ratio 16; Blood Urea Nitrogen 13 mg/dL (7-17); Calcium 7.1 mg/dL (8.4-10.2); Hemolysis Index 1
[2021-09-28] MEDS: ESCITALOPRAM 10 MG TAB PO SCH (10:09)
[2021-09-28] MEDS: cefTRIAXone/NS 1 GM/50 ML 1 GM/50 ML BAG IV SCH (10:45)
--- NOTE | 2021-09-28 10:47 | Progress Note ---
Assessment and Plan 55 y/o female with esophageal variceal bleed, s/p banding x2 09/28/21: Can stop q6hr H/H's. Octreotide as per GI. Ok with patient having water but need to ask GI if she can eat and what (had esophageal banding on yesterday). CIWA protocol. Ok with transfer to floor, will sign off once out of unit. 1. Q6 hour H/H's at least for the next 24-6 hours 2. Octreotide drip as ordered by GI 3. CIWA protocol given ETOH use 4. NPO and agree with IVF 5. Empiric abx 6. Guarded prognosis. CCT 31 minutes. Subjective Date of service: 09/28/21 Interval history: Awake and alert. Feels much better just some soreness in her throat. H/H has been stable. Wants water. Remains on octreotide drip. Remainder is negative. Objective - Constitutional Vitals: Vital Signs - 12hr 09/27/21 09/28/21 09/28/21 23:00 00:00 00:40 Temperature Pulse Rate 96 H 98 H 100 H Respiratory 17 16 Rate Blood Pressure 136/68 128/69 O2 Sat by Pulse 97 Oximetry 09/28/21 09/28/21 09/28/21 01:00 02:00 03:00 Temperature Pulse Rate 99 H 97 H 98 H Respiratory 16 16 15 Rate Blood Pressure 116/60 111/54 118/52 O2 Sat by Pulse 100 95 97 Oximetry 09/28/21 09/28/21 09/28/21 04:00 05:00 05:01 Temperature 99.5 F Pulse Rate 100 H 94 H Respiratory 16 16 Rate Blood Pressure 110/42 94/43 O2 Sat by Pulse 97 98 Oximetry 09/28/21 06:00 Temperature Pulse Rate 95 H Respiratory 15 Rate Blood Pressure 106/63 O2 Sat by Pulse 94 Oximetry - Labs CBC & Chem 7: 09/28/21 03:45 09/28/21 03:45 Labs: Abnormal lab results 09/27/21 09/27/21 09/27/21 Range/Units 03:01 18:30 23:24 WBC 13.6 H (4.5-11.0) K/mm3 RBC 3.12 L (3.65-5.03) M/mm3 Hgb 9.3 L (10.1-14.3) gm/dl Hct 30.1 L 27.6 L (30.3-42.9) % MCH 33 H (28-32) pg Plt Count 84 L (140-440) K/mm3 [place] % (Auto) (0.0-7.3) % [place] # (Auto) (0.0-0.8) K/mm3 Seg Neutrophils % (40.0-70.0) % PT (12.2-14.9) Sec. INR (0.87-1.13) Chloride (98-107) mmol/L Glucose (65-100) mg/dL Calcium (8.4-10.2) mg/dL Total Bilirubin (0.1-1.2) mg/dL AST (5-40) units/L Total Protein (6.3-8.2) g/dL Albumin (3.9-5) g/dL Crossmatch See Detail 09/28/21 09/28/21 09/28/21 Range/Units 03:45 03:45 03:45 WBC (4.5-11.0) K/mm3 RBC 2.65 L (3.65-5.03) M/mm3 Hgb 8.7 L (10.1-14.3) gm/dl Hct 25.5 L (30.3-42.9) % MCH 33 H (28-32) pg Plt Count 75 L (140-440) K/mm3 [place] % (Auto) 9.2 H (0.0-7.3) % [place] # (Auto) 0.9 H (0.0-0.8) K/mm3 Seg Neutrophils % 70.5 H (40.0-70.0) % PT 23.2 H (12.2-14.9) Sec. INR 1.80 H (0.87-1.13) Chloride 111.7 H (98-107) mmol/L Glucose 130 H (65-100) mg/dL Calcium 7.1 L D (8.4-10.2) mg/dL Total Bilirubin 3.40 H (0.1-1.2) mg/dL AST 72 H (5-40) units/L Total Protein 5.3 L D (6.3-8.2) g/dL Albumin 2.4 L (3.9-5) g/dL Crossmatch Medications & Allergies - Medications Allergies/Adverse Reactions: Allergies codeine Adverse Reaction (Verified 03/31/17 11:14) Nausea Home Medications: Home Medications Medication Instructions Recorded Confirmed Last Taken Type D-Methorphan/PE/Acetaminophen 1 each PO BID #20 tablet 03/31/17 Unknown Rx [Tylenol Cold Multi-Symp Caplet] Ibuprofen [Motrin] 800 mg PO Q8HR PRN #20 tablet 03/31/17 Unknown Rx Azithromycin [Zithromax Z-BEE] 250 mg PO DAILY #6 tablet 06/18/17 Unknown Rx Benzonatate [Tessalon Perle] 100 mg PO Q6H PRN #20 capsule 06/18/17 Unknown Rx Ibuprofen [Motrin] 600 mg PO Q8H PRN #30 tablet 06/18/17 Unknown Rx Oseltamivir [Tamiflu] 75 mg PO BID #14 cap 06/18/17 Unknown Rx Benzonatate 200 mg PO TID PRN #30 capsule 05/18/20 Unknown Rx Loratadine 10 mg PO QDAY PRN #10 tablet 05/18/20 Unknown Rx guaiFENesin/DEXTROMETHORPHAN 5 ml PO TID #1 bottle 05/18/20 Unknown Rx [Robitussin Cough-Chest Dm Liq] Escitalopram [Lexapro] 5 mg PO QDAY #30 09/27/21 Unknown Rx traZODone [Desyrel] 50 mg PO QHS #30 tab 09/27/21 Unknown Rx Active Medications: Generic Name Dose Route Start Last Admin Trade Name Freq PRN Reason Stop Dose Admin Escitalopram Oxalate 5 mg 09/27/21 14:00 09/27/21 17:50 Escitalopram 10 Mg Tab PO Not Given QDAY RAJESH Octreotide Acetate 500 mcg/ 101 mls @ 5.05 mls/hr 09/27/21 05:00 09/27/21 22:05 Sodium Chloride IV 09/29/21 04:59 25 mcg/hr TITR RAJESH 5.05 mls/hr Administration Protocol 25 MCG/HR Ceftriaxone Sodium 1 gm in 50 mls @ 100 mls/hr 09/27/21 09:00 09/27/21 09:25 Rocephin/Ns 1 Gm/50 Ml IV 10/01/21 09:29 100 mls/hr Q24H RAJESH Administration Protocol Sodium Chloride 1,000 mls @ 50 mls/hr 05/20/22 10:30 09/27/21 19:47 Nacl 0.9% 1000 Ml IV 50 mls/hr DIRECT RAJESH Administration Lorazepam 4 mg 09/27/21 08:30 Lorazepam 2 Mg/Ml Vial IV Q1H PRN CIWA-Ar 16-25 Lorazepam 2 mg 09/27/21 08:30 Lorazepam 2 Mg/Ml Vial IV Q1H PRN CIWA-Ar 8-15 Metoclopramide HCl 5 mg 09/27/21 07:37 09/27/21 19:44 Metoclopramide 10 Mg/2 Ml Inj IV 5 mg Q6H PRN Administration Nausea And Vomiting Morphine Sulfate 2 mg 09/27/21 08:30 09/27/21 13:54 Morphine 2 Mg/1 Ml Inj IV 2 mg Q4H PRN Administration Pain, Moderate (4-6) Sodium Chloride 10 ml 09/27/21 10:00 09/27/21 17:50 Sodium Chloride 0.9% 10 Ml Flush Syringe IV Not Given BID RAJESH Sodium Chloride 10 ml 09/27/21 08:30 Sodium Chloride 0.9% 10 Ml Flush Syringe IV PRN PRN LINE FLUSH Trazodone HCl 50 mg 09/27/21 22:00 Trazodone 50 Mg Tab PO QHS [facility] HEART Score - HEART Score Troponin: Troponin T < 0.010 ng/mL (0.00-0.029) 09/27/21 08:04
[2021-09-28 12:28] LABS: Hematocrit 25.5 % (30.3-42.9); Hemoglobin 8.8 gm/dl (10.1-14.3)
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
--- NOTE | 2021-09-28 14:21 | Gastroenterology Progress Note ---
Assessment and Plan # upper Gi bleed # Alcoholic cirrhosis - s/p EGD on 09/27/21 with distal esophageal varices, one with fibrin plug s/p banding with total of 2 bands placed. hemostasis achieve. - Hgb stable. - no signs of recurrent active bleeding. - patient planned for transfer out of ICU Rec - cont with octreotide of total of 48 hrs. - continue with PPI IV. - monitor H/H and transfuse as needed. - advance diet as tolerated but only up to full liquids for next 2 days. - ppx antibiotics with ceftriaxone for total of 7 days. can switch to PO cipro on discharge. - recommend nonselective BB on discharge. - advised on alcohol cessation. - patient to follow up with Dr. Chavarria outpatient. Will need repeat EGD for reassess in few weeks outpatient. Subjective Date of service: 09/28/21 Interval history: s/p EGD with variceal banding. Doing well. No nausea/vomiting or abdominal pain. Had one stool with dark colon. Objective - Constitutional Vitals: Temp Pulse Resp BP Pulse Ox 99.5 F 101 H 17 118/61 98 09/28/21 05:01 09/28/21 12:00 09/28/21 12:00 09/28/21 12:00 09/28/21 12:00 General appearance: no acute distress - EENT Eyes: EOM intact ENT: hearing intact - Respiratory Respiratory effort: normal - Cardiovascular Rhythm: regular Heart Sounds: Present: S1 & S2 - Gastrointestinal General gastrointestinal: Present: soft, non-tender, non-distended - Neurologic Neurological: alert and oriented x3 - Psychiatric Psychiatric: appropriate mood/affect - Labs CBC & Chem 7: 09/28/21 11:07 09/28/21 03:45 Labs: Laboratory Results - last 24 hr 09/27/21 09/27/21 09/28/21 18:30 23:24 03:45 WBC 13.6 H 9.4 RBC 3.12 L 2.65 L Hgb 10.2 9.3 L 8.7 L Hct 30.1 L 27.6 L 25.5 L MCV 97 96 MCH 33 H 33 H MCHC 34 34 RDW 14.5 14.5 Plt Count 84 L 75 L Lymph % (Auto) 19.4 [place] % (Auto) 9.2 H Eos % (Auto) 0.5 Baso % (Auto) 0.4 Lymph # (Auto) 1.8 [place] # (Auto) 0.9 H Eos # (Auto) 0.1 Baso # (Auto) 0.0 Seg Neutrophils % 70.5 H Seg Neutrophils # 6.6 PT INR Sodium Potassium Chloride Carbon Dioxide Anion Gap BUN Creatinine Estimated GFR BUN/Creatinine Ratio Glucose Calcium Total Bilirubin AST ALT Alkaline Phosphatase Total Protein Albumin Albumin/Globulin Ratio 09/28/21 09/28/21 09/28/21 03:45 03:45 11:07 WBC RBC Hgb 8.8 L Hct 25.5 L MCV MCH MCHC RDW Plt Count Lymph % (Auto) [place] % (Auto) Eos % (Auto) Baso % (Auto) Lymph # (Auto) [place] # (Auto) Eos # (Auto) Baso # (Auto) Seg Neutrophils % Seg Neutrophils # PT 23.2 H INR 1.80 H Sodium 142 Potassium 4.2 D Chloride 111.7 H Carbon Dioxide 22 Anion Gap 13 BUN 13 Creatinine 0.8 Estimated GFR > 60 BUN/Creatinine Ratio 16 Glucose 130 H Calcium 7.1 L D Total Bilirubin 3.40 H AST 72 H ALT 18 Alkaline Phosphatase 86 Total Protein 5.3 L D Albumin 2.4 L Albumin/Globulin Ratio 0.8
[2021-09-28] MEDS: OCTREOTIDE 500 MCG in SODIUM CHLORIDE 0.9% 100 ML IV SCH (17:44)
[2021-09-28] MEDS: SODIUM CHLORIDE 0.9% 1000 ML 1,000 ML IV SCH (17:45)
[2021-09-28] MEDS: traZODone 50 MG TAB PO SCH ×2 (18:30→22:02)
[2021-09-28] MEDS: PANTOPRAZOLE 40 MG INJ IV SCH (22:02)
[2021-09-29 06:32] LABS: Hematocrit 23.4 % (30.3-42.9); Hemoglobin 7.8 gm/dl (10.1-14.3); Mean Corpuscular HGB Conc 33 % (30-34); Mean Corpuscular Volume 98 fl (79-97); Red Blood Count 2.39 M/mm3 (3.65-5.03); Red Cell Distribution Width 14.6 % (13.2-15.2)
[2021-09-29 06:39] VITALS: BP 112/55
[2021-09-29 06:42] LABS: Platelet Count 67 K/mm3 (140-440)
[2021-09-29 06:52] LABS: BUN/Creatinine Ratio 11; Blood Urea Nitrogen 10 mg/dL (7-17); Calcium 7.2 mg/dL (8.4-10.2); Hemolysis Index 3
--- NOTE | 2021-09-29 08:26 | Progress Note ---
Assessment and Plan Assessment and plan: History Interval history: This is is a 55-year-old female with liver cirrhosis, EtOH dependent, sickle cell trait and esophageal varices who presented to the emergency department on on 09/27 with complaints of hematic emesis for 5 episodes associated with nausea and abdominal pain and stated that she had filled approximately 3 "green bags" with bloody emesis and last episode was dark black emesis. Patient stated that she resumed drinking alcohol yesterday and drink approximately 4 beers after personal tragedy. Work-up in the emergency department revealed transaminitis, mild leukocytosis, tachycardia. Patient was admitted to the hospitalist service with possible esophageal variceal bleed, acute blood loss anemia, acute decompensated liver failure, SIRS, hypokalemia with consults to CCM, psych and GI. Hospital course to date: 09/28: Patient underwent a EGD yesterday which revealed distal esophageal varices requiring banding of 2 varices. No acute events reported overnight. H&H has remained stable and patient will be transferred to the floor today. We will speak to GI regarding diet. 09/29: Clear liquid diet, can advance only to full liquid over next 2 days. Continue abx for sbp ppx. continue octreotide per GI direction. Will continue to monitor for an additional 24 hrs. Hgb: 7.8, repeat ordered for tomorrow AM. Plan for d/c tomorrow. Assessment and plan: Neuro: Major depressive disorder, h/o EtOH abuse -Psych consulted, appreciate recommendations -Signed off 09/28 -Lexapro, trazodone -Does not recommend acute inpatient hospitalization but recommends follow-up within 7 to 14 days upon discharge -[facility] protocol -Avoid delirium -Reorientation as needed -Maintain sleep-wake cycle -aspiration/seizure precautions -As needed analgesia Cardiac: NAD -Blood pressure monitoring per protocol -As needed hydralazine Respiratory: Acute hypoxic respiratory failure -Supplemental oxygen as needed -Currently on room air -Pulmonary hygiene -SPO2 monitoring GI: Acute on chronic decompensated liver failure, active esophageal variceal bleed, mild protein calorie malnutrition, hematemesis(resolved), h/o esophageal varices, EtOH cirrhosis -GI and CCM consulted, appreciate recommendations -S/p 1 unit PRBC -S/p EGD 09/27 which showed active variceal bleed s/p banding x2 -Octreotide drip -S/p Protonix drip -IV Protonix -Rocephin IV for 7 days -24 hours -CLD, advance as tolerated per GI recommends up to full liquid diet for 2 days -Trend LFT -Per GI : - recommend nonselective BB on discharge. - advised on alcohol cessation. - patient to follow up with Dr. Chavarria outpatient. Will need repeat EGD for reassess in few weeks outpatient. : NAD -Renally dose medications -Avoid nephrotoxic medications -Trend BMP ID: SIRS (POA) -Admitted with mild leukocytosis and tachycardia -Antibiotic therapy with IV Rocephin for prophylaxis -f/u blood culture -Monitor WBC and temperature curve Endo: NAD -Avoid hypoglycemia Heme: Acute blood loss anemia, leukocytosis (resolved) -S/p 1 unit PRBC -Trend CBC -Transfuse hemoglobin less than 7 -Monitor for signs of bleeding -SCDs to BLE while in bed The high probability of a clinically significant, sudden or life threatening deterioration of the [gi, hepatic] system(s) required my full and direct attention, intervention and personal management. The aggregate critical care time was [60] minutes. This time is in addition to time spent performing reported procedures but includes the following: [x] Data Review and interpretation [x] Patient assessment and monitoring of vital signs [x] Documentation [x] Medication orders and management Disposition Plan: transfer to floor Total Time Spent with Patient (Minutes): 60 Hospitalist Physical - Physical exam Narrative exam: Physical Exam: VITAL SIGNS: Reviewed. GENERAL: The patient appears normally developed, Vital signs as documented. HEAD: No signs of head trauma. EYES: Pupils are equal. Extraocular motions intact. EARS: Hearing grossly intact. MOUTH: clear oropharynx NECK: No adenopathy, no JVD. CHEST: Chest with clear breath sounds bilaterally. No wheezes, rales, or rhonchi. CARDIAC: Regular rate and rhythm. S1 and S2, without murmurs, gallops, or rubs. VASCULAR: No Edema. Peripheral pulses normal and equal in all extremities. ABDOMEN: Soft, non tender and non distended. No rebound or guarding, and no masses palpated. Bowel Sounds normal. MUSCULOSKELETAL: Good range of motion of all major joints. Extremities without clubbing, cyanosis or edema. NEUROLOGIC EXAM: Alert and oriented x 4. no focal sensory or strength deficits. PSYCHIATRIC: Depressed mood SKIN: detail exam as documented in skin assessment - Constitutional Vitals: Temp Pulse Resp BP Pulse Ox 99.1 F 92 H 14 112/55 95 09/29/21 05:24 09/29/21 05:24 09/29/21 05:24 09/29/21 05:24 09/29/21 05:24 General appearance: Present: no acute distress HEART Score - HEART Score Troponin: Troponin T < 0.010 ng/mL (0.00-0.029) 09/27/21 08:04 Results - Labs CBC & Chem 7: 09/29/21 05:33 09/29/21 05:33 Labs: Laboratory Last Values WBC 6.3 K/mm3 (4.5-11.0) 09/29/21 05:33 RBC 2.39 M/mm3 (3.65-5.03) L 09/29/21 05:33 Hgb 7.8 gm/dl (10.1-14.3) L 09/29/21 05:33 Hct 23.4 % (30.3-42.9) L 09/29/21 05:33 MCV 98 fl (79-97) H 09/29/21 05:33 MCH 33 pg (28-32) H 09/29/21 05:33 MCHC 33 % (30-34) 09/29/21 05:33 RDW 14.6 % (13.2-15.2) 09/29/21 05:33 Plt Count 67 K/mm3 (140-440) L 09/29/21 05:33 Lymph % (Auto) 19.4 % (13.4-35.0) 09/28/21 03:45 [place]con % (Auto) 9.2 % (0.0-7.3) H 09/28/21 03:45 Eos % (Auto) 0.5 % (0.0-4.3) 09/28/21 03:45 Baso % (Auto) 0.4 % (0.0-1.8) 09/28/21 03:45 Lymph # (Auto) 1.8 K/mm3 (1.2-5.4) 09/28/21 03:45 [place]con # (Auto) 0.9 K/mm3 (0.0-0.8) H 09/28/21 03:45 Eos # (Auto) 0.1 K/mm3 (0.0-0.4) 09/28/21 03:45 Baso # (Auto) 0.0 K/mm3 (0.0-0.1) 09/28/21 03:45 Seg Neutrophils % 70.5 % (40.0-70.0) H 09/28/21 03:45 Seg Neutrophils # 6.6 K/mm3 (1.8-7.7) 09/28/21 03:45 PT 23.2 Sec. (12.2-14.9) H 09/28/21 03:45 INR 1.80 (0.87-1.13) H 09/28/21 03:45 Sodium 142 mmol/L (137-145) 09/29/21 05:33 Potassium 3.5 mmol/L (3.6-5.0) L 09/29/21 05:33 Chloride 112.7 mmol/L (98-107) H 09/29/21 05:33 Carbon Dioxide 22 mmol/L (22-30) 09/29/21 05:33 Anion Gap 11 mmol/L 09/29/21 05:33 BUN 10 mg/dL (7-17) 09/29/21 05:33 Creatinine 0.9 mg/dL (0.6-1.2) 09/29/21 05:33 Estimated GFR > 60 ml/min 09/29/21 05:33 BUN/Creatinine Ratio 11 % 09/29/21 05:33 Glucose 92 mg/dL (65-100) 09/29/21 05:33 Calcium 7.2 mg/dL (8.4-10.2) L 09/29/21 05:33 Phosphorus 2.00 mg/dL (2.5-4.5) L 09/29/21 05:33 Magnesium 1.60 mg/dL (1.7-2.3) L 09/29/21 05:33 Total Bilirubin 3.40 mg/dL (0.1-1.2) H 09/28/21 03:45 AST 72 units/L (5-40) H 09/28/21 03:45 ALT 18 units/L (7-56) 09/28/21 03:45 Alkaline Phosphatase 86 units/L (35-129) 09/28/21 03:45 Ammonia 112.0 umol/L (25-60) H 09/27/21 03:01 Troponin T < 0.010 ng/mL (0.00-0.029) 09/27/21 08:04 Total Protein 5.3 g/dL (6.3-8.2) L D 09/28/21 03:45 Albumin 2.4 g/dL (3.9-5) L 09/28/21 03:45 Albumin/Globulin Ratio 0.8 % 09/28/21 03:45 Lipase 56 units/L (13-60) 09/27/21 03:01 Plasma/Serum Alcohol 0.14 % (0-0.07) H 09/27/21 03:54 Blood Type O POSITIVE 09/27/21 03:01 Antibody Screen Negative 09/27/21 03:01 Crossmatch See Detail 09/27/21 03:01 Chairez/IV: Voiding Method Toilet Active Medications - Current Medications Current Medications: Generic Name Dose Route Start Last Admin Trade Name Freq PRN Reason Stop Dose Admin Escitalopram Oxalate 5 mg 09/27/21 14:00 09/28/21 10:09 Escitalopram 10 Mg Tab PO Not Given QDAY RAJESH Ceftriaxone Sodium 1 gm in 50 mls @ 100 mls/hr 09/27/21 09:00 09/28/21 10:45 Rocephin/Ns 1 Gm/50 Ml IV 10/01/21 09:29 100 mls/hr Q24H RAJESH Administration Protocol Sodium Chloride 1,000 mls @ 50 mls/hr 09/27/21 10:30 09/28/21 17:45 Nacl 0.9% 1000 Ml IV 50 mls/hr DIRECT RAJESH Administration Lorazepam 4 mg 09/27/21 08:30 Lorazepam 2 Mg/Ml Vial IV Q1H PRN CIWA-Ar 16-25 Lorazepam 2 mg 09/27/21 08:30 Lorazepam 2 Mg/Ml Vial IV Q1H PRN CIWA-Ar 8-15 Metoclopramide HCl 5 mg 09/27/21 07:37 09/27/21 19:44 Metoclopramide 10 Mg/2 Ml Inj IV 5 mg Q6H PRN Administration Nausea And Vomiting Morphine Sulfate 2 mg 09/27/21 08:30 09/27/21 13:54 Morphine 2 Mg/1 Ml Inj IV 2 mg Q4H PRN Administration Pain, Moderate (4-6) Pantoprazole Sodium 40 mg 09/28/21 22:00 09/28/21 22:02 Pantoprazole 40 Mg Inj IV 40 mg BID RAJESH Administration Sodium Chloride 10 ml 09/27/21 10:00 09/28/21 22:03 Sodium Chloride 0.9% 10 Ml Flush Syringe IV 10 ml BID RAJESH Administration Sodium Chloride 10 ml 09/27/21 08:30 Sodium Chloride 0.9% 10 Ml Flush Syringe IV PRN PRN LINE FLUSH Trazodone HCl 50 mg 09/27/21 22:00 09/28/21 22:02 Trazodone 50 Mg Tab PO 50 mg QHS RAJESH Administration
--- NOTE | 2021-09-29 09:43 | Progress Note ---
Assessment and Plan 55 y/o female with esophageal variceal bleed, s/p banding x2 09/29/21: HgB is 8. BP stable. Platelets did drop. Will keep on my list and follow as needed. 09/28/21: Can stop q6hr H/H's. Octreotide as per GI. Ok with patient having w ater but need to ask GI if she can eat and what (had esophageal banding on yesterday). CIWA protocol. Ok with transfer to floor, will sign off once out of unit. 1. Q6 hour H/H's at least for the next 24-6 hours 2. Octreotide drip as ordered by GI 3. CIWA protocol given ETOH use 4. NPO and agree with IVF 5. Empiric abx 6. Guarded prognosis. CCT 31 minutes. Subjective Date of service: 09/29/21 Interval history: Successful transfer out of ICU. Objective - Constitutional Vitals: Vital Signs - 12hr 09/28/21 09/28/21 09/29/21 22:00 22:26 05:24 Temperature 99.1 F 99.1 F Pulse Rate 92 H 92 H Respiratory 18 14 14 Rate Blood Pressure 114/52 112/55 O2 Sat by Pulse 97 96 95 Oximetry - Labs CBC & Chem 7: 09/29/21 05:33 09/29/21 05:33 Labs: Abnormal lab results 09/28/21 09/29/21 09/29/21 Range/Units 11:07 05:33 05:33 RBC 2.39 L (3.65-5.03) M/mm3 Hgb 8.8 L 7.8 L (10.1-14.3) gm/dl Hct 25.5 L 23.4 L (30.3-42.9) % MCV 98 H (79-97) fl MCH 33 H (28-32) pg Plt Count 67 L (140-440) K/mm3 Potassium 3.5 L (3.6-5.0) mmol/L Chloride 112.7 H (98-107) mmol/L Calcium 7.2 L (8.4-10.2) mg/dL Phosphorus 2.00 L (2.5-4.5) mg/dL Magnesium 1.60 L (1.7-2.3) mg/dL Medications & Allergies - Medications Allergies/Adverse Reactions: Allergies codeine Adverse Reaction (Verified 03/31/17 11:14) Nausea Home Medications: Home Medications Medication Instructions Recorded Confirmed Last Taken Type D-Methorphan/PE/Acetaminophen 1 each PO BID #20 tablet 03/31/17 09/28/21 Unknown Rx [Tylenol Cold Multi-Symp Caplet] Ibuprofen [Motrin] 800 mg PO Q8HR PRN #20 tablet 03/31/17 09/28/21 Unknown Rx Azithromycin [Zithromax Z-BEE] 250 mg PO DAILY #6 tablet 06/18/17 09/28/21 Unknown Rx Benzonatate [Tessalon Perle] 100 mg PO Q6H PRN #20 capsule 06/18/17 09/28/21 Unknown Rx Ibuprofen [Motrin] 600 mg PO Q8H PRN #30 tablet 06/18/17 09/28/21 Unknown Rx Oseltamivir [Tamiflu] 75 mg PO BID #14 cap 06/18/17 09/28/21 Unknown Rx Benzonatate 200 mg PO TID PRN #30 capsule 05/18/20 09/28/21 Unknown Rx Loratadine 10 mg PO QDAY PRN #10 tablet 05/18/20 09/28/21 Unknown Rx guaiFENesin/DEXTROMETHORPHAN 5 ml PO TID #1 bottle 05/18/20 09/28/21 Unknown Rx [Robitussin Cough-Chest Dm Liq] Escitalopram [Lexapro] 5 mg PO QDAY #30 09/27/21 Unknown Rx traZODone [Desyrel] 50 mg PO QHS #30 tab 09/27/21 Unknown Rx Active Medications: Generic Name Dose Route Start Last Admin Trade Name Freq PRN Reason Stop Dose Admin Escitalopram Oxalate 5 mg 09/27/21 14:00 09/28/21 10:09 Escitalopram 10 Mg Tab PO Not Given QDAY RAJESH Ceftriaxone Sodium 1 gm in 50 mls @ 100 mls/hr 09/27/21 09:00 09/28/21 10:45 Rocephin/Ns 1 Gm/50 Ml IV 10/01/21 09:29 100 mls/hr Q24H RAJESH Administration Protocol Sodium Chloride 1,000 mls @ 50 mls/hr 09/27/21 10:30 09/28/21 17:45 Nacl 0.9% 1000 Ml IV 50 mls/hr DIRECT RAJESH Administration Lorazepam 4 mg 09/27/21 08:30 Lorazepam 2 Mg/Ml Vial IV Q1H PRN CIWA-Ar 16-25 Lorazepam 2 mg 09/27/21 08:30 Lorazepam 2 Mg/Ml Vial IV Q1H PRN CIWA-Ar 8-15 Metoclopramide HCl 5 mg 09/27/21 07:37 09/27/21 19:44 Metoclopramide 10 Mg/2 Ml Inj IV 5 mg Q6H PRN Administration Nausea And Vomiting Morphine Sulfate 2 mg 09/27/21 08:30 09/27/21 13:54 Morphine 2 Mg/1 Ml Inj IV 2 mg Q4H PRN Administration Pain, Moderate (4-6) Pantoprazole Sodium 40 mg 09/28/21 22:00 09/28/21 22:02 Pantoprazole 40 Mg Inj IV 40 mg BID RAJESH Administration Sodium Chloride 10 ml 09/27/21 10:00 09/28/21 22:03 Sodium Chloride 0.9% 10 Ml Flush Syringe IV 10 ml BID RAJESH Administration Sodium Chloride 10 ml 09/27/21 08:30 Sodium Chloride 0.9% 10 Ml Flush Syringe IV PRN PRN LINE FLUSH Trazodone HCl 50 mg 09/27/21 22:00 09/28/21 22:02 Trazodone 50 Mg Tab PO 50 mg QHS RAJESH Administration HEART Score - HEART Score Troponin: Troponin T < 0.010 ng/mL (0.00-0.029) 09/27/21 08:04
[2021-09-29] MEDS: PANTOPRAZOLE 40 MG INJ IV SCH (10:14)
[2021-09-29] MEDS: cefTRIAXone/NS 1 GM/50 ML 1 GM/50 ML BAG IV SCH (10:14)
[2021-09-29] MEDS: ESCITALOPRAM 10 MG TAB PO SCH (10:22)
--- NOTE | 2021-09-29 10:51 | Discharge Summary ---
Providers - Providers Date of Admission: 09/27/21 08:20 Attending physician: OLENA FENG MD 09/27/21 04:47 Consult to Physician [CONS] Stat Comment: Consulting Provider: ANNA AGUIRRE Physician Instructions: Reason For Exam: GI bleed 09/27/21 08:20 Consult to Physician [CONS] Routine Comment: Consulting Provider: LYNETTE TRAN Physician Instructions: Reason For Exam: varices, hemetemesis 09/27/21 09:08 psychiatry consult [Consult to Mental Health] [CONS] Stat Reason For Exam: Substance use Primary care physician: MAKI NASCIMENTO Hospitalization Reason for admission: hematemesis Condition: Fair Hospital course: Interval history: This is is a 55-year-old female with liver cirrhosis, EtOH dependent, sickle cell trait and esophageal varices who presented to the emergency department on on 09/27 with complaints of hematic emesis for 5 episodes associated with nausea and abdominal pain and stated that she had filled approximately 3 "green bags" with bloody emesis and last episode was dark black emesis. Patient stated that she resumed drinking alcohol yesterday and drink approximately 4 beers after personal tragedy. Work-up in the emergency department revealed transaminitis, mild leukocytosis, tachycardia. Patient was admitted to the hospitalist service with possible esophageal variceal bleed, acute blood loss anemia, acute decompensated liver failure, SIRS, hypokalemia with consults to CCM, psych and GI. Hospital course to date: 09/28: Patient underwent a EGD yesterday which revealed distal esophageal varices requiring banding of 2 varices. No acute events reported overnight. H&H has remained stable and patient will be transferred to the floor today. We will speak to GI regarding diet. 09/29: Clear liquid diet, can advance only to full liquid over next 2 days. Hgb 7.8. D/w GI ok with dc. Will send home with rx for cipro, propranolol, protonix, instructions to hold all antiplatelets, avoid NSAIDS, quit drinking. Also advise patient to seek mental health counseling for recent family loss as well as behavioral health counseling for alcohol addiction. Patient will need to follow up with Dr. Altamirano as soon as possible to discuss repeat EGD to re- evaluate banding of varices. Soft diet for next week. Assessment and plan: Neuro: Major depressive disorder, h/o EtOH abuse -Psych consulted, appreciate recommendations -Signed off 09/28 -Lexapro, trazodone -Does not recommend acute inpatient hospitalization but recommends follow-up within 7 to 14 days upon discharge -CIWA protocol -Avoid delirium -Reorientation as needed -Maintain sleep-wake cycle -aspiration/seizure precautions -As needed analgesia Cardiac: NAD -Blood pressure monitoring per protocol -As needed hydralazine Respiratory: Acute hypoxic respiratory failure -Supplemental oxygen as needed -Currently on room air -Pulmonary hygiene -SPO2 monitoring GI: Acute on chronic decompensated liver failure, active esophageal variceal bleed, mild protein calorie malnutrition, hematemesis(resolved), h/o esophageal varices, EtOH cirrhosis -GI and CCM consulted, appreciate recommendations -S/p 1 unit PRBC -S/p EGD 09/27 which showed active variceal bleed s/p banding x2 -Octreotide drip -S/p Protonix drip -IV Protonix -Rocephin IV for 7 days -24 hours -CLD, advance as tolerated per GI recommends up to full liquid diet for 2 days -Trend LFT -Per GI : - recommend nonselective BB on discharge. - advised on alcohol cessation. - patient to follow up with Dr. Altamirano outpatient. Will need repeat EGD for reassess in few weeks outpatient. : NAD -Renally dose medications -Avoid nephrotoxic medications -Trend BMP ID: SIRS (POA) -Admitted with mild leukocytosis and tachycardia -Antibiotic therapy with IV Rocephin for prophylaxis -f/u blood culture -Monitor WBC and temperature curve Endo: NAD -Avoid hypoglycemia Heme: Acute blood loss anemia, leukocytosis (resolved) -S/p 1 unit PRBC -Trend CBC -Transfuse hemoglobin less than 7 -Monitor for signs of bleeding -SCDs to BLE while in bed Disposition: HOME / SELF CARE / HOMELESS Final Discharge Diagnosis (Prints w/discharge instructions): Esophageal Variceal Bleed Time spent for discharge: 35 Core Measure Documentation - Palliative Care Palliative Care/ Comfort Measures: Not Applicable - Core Measures Any of the following diagnoses?: none Exam - Physical Exam Narrative exam: Physical Exam: VITAL SIGNS: Reviewed. GENERAL: The patient appears normally developed, Vital signs as documented. HEAD: No signs of head trauma. EYES: Pupils are equal. Extraocular motions intact. EARS: Hearing grossly intact. MOUTH: clear oropharynx NECK: No adenopathy, no JVD. CHEST: Chest with clear breath sounds bilaterally. No wheezes, rales, or rhonchi. CARDIAC: Regular rate and rhythm. S1 and S2, without murmurs, gallops, or rubs. VASCULAR: No Edema. Peripheral pulses normal and equal in all extremities. ABDOMEN: Soft, non tender and non distended. No rebound or guarding, and no masses palpated. Bowel Sounds normal. MUSCULOSKELETAL: Good range of motion of all major joints. Extremities without clubbing, cyanosis or edema. NEUROLOGIC EXAM: Alert and oriented x 4. no focal sensory or strength deficits. PSYCHIATRIC: Depressed mood SKIN: detail exam as documented in skin assessment - Constitutional Vitals: Temp Pulse Resp BP Pulse Ox 99.1 F 92 H 14 112/55 95 09/29/21 05:24 09/29/21 05:24 09/29/21 05:24 09/29/21 05:24 09/29/21 05:24 Plan Care Plan Goals: Professional and Agency Contacts To help Resolve Crises(01/12) CT Crisis Line: Suicide Prevention Line: Crisis Text Line: Text START to 987224 Emergency: 911 Outpatient COMMUNITY Behavioral Health Resources: DEKALB: [facility] [address] [place], [place] [address] [address] [facility] - [address] [place] [address] Thursday thru Thursday - 8am - 5pm HERALD: [facility] Address: [address] [place] [address] [facility] Address: [address] [place] [address] Thursday thru Thursday- 7am-2pm [facility] Address: [address] [place] [address] Thursday thru Thursday: 8:30AM-5PM In case of an emergency, please contact the following numbers: CT Crisis and Access Line: Number: w Crisis Text Line: (Text START) Number: 271829 Suicide Prevention Line: Number: Emergency Number: 911 SUBSTANCE ABUSE PROGRAMS: [facility]: Location: [place], [place] [employer] Address: [address] [place] [address] [facility]: Address: [address] [place] [address] [facility]: Address: [address] [place] [address] [facility]: Address: [address] [place] [address] [facility] Address: [address] [place] [address]. Please contact above numbers to attempt placement into free based program. Medicaid Programs: [facility]: Address: [address] [place] [address] [facility]: Address: [address] [place] [address] Plan of Treatment: Clear liquid diet, can advance only to full liquid over next 2 days. Hgb 7.8. Gastroenterology has cleared for discharge. Will send home with rx for cipro, propranolol, protonix, instructions to hold all antiplatelets, avoid NSAIDS, quit drinking. Also advise patient to seek mental health counseling for recent family loss as well as behavioral health counseling for alcohol addiction. Patient will need to follow up with Dr. Altamirano as soon as possible to discuss repeat EGD to re-evaluate banding of varices. Soft diet for next week. Follow up with: MAKI NASCIMENTO MD [Primary Care Provider] - 3-5 Days SHANITA ALTAMIRANO MD [Staff Physician] - 7 Days Prescriptions: traZODone [Desyrel] 50 mg PO QHS #30 tab Ciprofloxacin HCl 500 mg PO DAILY 5 Days #5 tab propranoloL [Inderal] 10 mg PO TID 30 Days #90 tablet Escitalopram [Lexapro] 5 mg PO QDAY #30 Pantoprazole [Protonix] 40 mg PO QDAY 30 Days #30 tablet
--- NOTE | 2021-09-29 12:29 | Gastroenterology Progress Note ---
Assessment and Plan # upper Gi bleed # Alcoholic cirrhosis - s/p EGD on 09/27/21 with distal esophageal varices, one with fibrin plug s/p banding with total of 2 bands placed. hemostasis achieve. - no signs of recurrent active bleeding. - tolerating liquids. Rec - can stop octreotide. - continue with PPI. transition to PO dosing. - stay on full liquids for next 2 days. - ppx antibiotics with ceftriaxone for total of 7 days. can switch to PO cipro o n discharge. - recommend nonselective BB on discharge. - advised on alcohol cessation. - patient to follow up with Dr. Chavarria outpatient. Will need repeat EGD for reassess in few weeks outpatient. - will sign off. please call as needed. Subjective Date of service: 09/29/21 Interval history: Patient without any BM overnight. States she had brown stools yesterday. No nausea/vomiting or abdominal pain. Objective - Constitutional Vitals: Temp Pulse Resp BP Pulse Ox 99.1 F 92 H 14 112/55 98 09/29/21 05:24 09/29/21 05:24 09/29/21 05:24 09/29/21 05:24 09/29/21 12:00 General appearance: no acute distress - EENT Eyes: EOM intact ENT: hearing intact - Respiratory Respiratory effort: normal - Cardiovascular Rhythm: regular - Gastrointestinal General gastrointestinal: Present: soft, non-tender, non-distended - Integumentary Integumentary: Present: clear, warm - Neurologic Neurological: alert and oriented x3 - Psychiatric Psychiatric: appropriate mood/affect - Labs CBC & Chem 7: 09/29/21 05:33 09/29/21 05:33 Labs: Laboratory Results - last 24 hr 09/28/21 09/29/21 09/29/21 11:07 05:33 05:33 WBC 6.3 RBC 2.39 L Hgb 8.8 L 7.8 L Hct 25.5 L 23.4 L MCV 98 H MCH 33 H MCHC 33 RDW 14.6 Plt Count 67 L Sodium 142 Potassium 3.5 L Chloride 112.7 H Carbon Dioxide 22 Anion Gap 11 BUN 10 Creatinine 0.9 Estimated GFR > 60 BUN/Creatinine Ratio 11 Glucose 92 Calcium 7.2 L Phosphorus 2.00 L Magnesium 1.60 L
--- NOTE | 2021-09-29 18:17 | Electrocardiograph Report ---
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
== END 2021-09-29 12:52 | disposition home or self-care (01) | DRG 432 ==
LOC: ED 02:11 → CC1 08:20 → 3A 09-28 18:14
PROVIDERS: ADMIT Internal Medicine; ATTEND Internal Medicine
PROC: 06L38CZ Occlusion of Esophageal Vein with Extraluminal Device, Via Natural or Artificial Opening Endoscopic (ICD-10-PCS; principal; 2021-09-27)
PROC: 30233N1 Transfusion of Nonautologous Red Blood Cells into Peripheral Vein, Percutaneous Approach (ICD-10-PCS; 2021-09-27)
DX: K70.30 Alcoholic cirrhosis of liver without ascites (principal); I85.11 Secondary esophageal varices with bleeding; K72.00 Acute and subacute hepatic failure without coma; J96.01 Acute respiratory failure with hypoxia; R65.10 Systemic inflammatory response syndrome (SIRS) of non-infectious origin without acute organ dysfunction; E87.6 Hypokalemia; D57.3 Sickle-cell trait; F10.20 Alcohol dependence, uncomplicated; F32.9 Major depressive disorder, single episode, unspecified; E44.1 Mild protein-calorie malnutrition; D62 Acute posthemorrhagic anemia; Z68.33 Body mass index [BMI] 33.0-33.9, adult
CPT/HCPCS: 36415; 71046; 80048; 80053; 80320; 82140; 83690; 83735; 84100; 84484; 85014; 85018; 85025; 85027; 85610; 86850; 86900; 86901; 86920; 93005; G0378; J2501; J3490; C9113; G0480; J0171; J0696; J2250; J2270; J2354; J2405; J2704; J2765; J3480; J7030; P9016

== ENCOUNTER 2022-01-29 17:20 | Emergency (ER) | payer MEDICAID ==
[2022-01-29 17:42] VITALS: BP 112/65
== END 2022-01-29 22:00 | disposition left against medical advice (07) ==
LOC: ED 17:20
DX: S69.90XA Unspecified injury of unspecified wrist, hand and finger(s), initial encounter (principal); R42 Dizziness and giddiness; Z53.21 Procedure and treatment not carried out due to patient leaving prior to being seen by health care provider; X58.XXXA Exposure to other specified factors, initial encounter; Y93.89 Activity, other specified; Y92.89 Other specified places as the place of occurrence of the external cause; Y99.8 Other external cause status

== ENCOUNTER 2022-01-30 10:52 | Emergency (ER) | payer MEDICAID ==
[2022-01-30 11:08] VITALS: BP 116/58
--- NOTE | 2022-01-31 10:22 | Electrocardiograph Report ---
[facility] Test Date: 2022-01-30 Test Time: 11:05:05 Pat Name: SHY GALLO Department: Room: Gender: F [employer]: AF : 1965 Requested By: KEIRY IRWIN Order Number: [id number] Reading MD: Kun Fernandez Measurements Intervals [place] Rate: 71 P: 83 WY: 141 QRS: 37 QRSD: 90 T: -63 QT: 397 QTc: 432 Interpretive Statements Sinus rhythm Abnormal T, consider ischemia, anterior leads Compared to ECG 09/28/2021 14:18:11 T-wave abnormality now present Possible ischemia still present Electronically Signed On 01-31-2022 10:22:16 EDT by Kun Fernandez
== END 2022-01-31 05:15 | disposition left against medical advice (07) ==
LOC: ED 10:52
DX: S69.90XA Unspecified injury of unspecified wrist, hand and finger(s), initial encounter (principal); R42 Dizziness and giddiness; Z53.21 Procedure and treatment not carried out due to patient leaving prior to being seen by health care provider; X58.XXXA Exposure to other specified factors, initial encounter; Y93.89 Activity, other specified; Y92.89 Other specified places as the place of occurrence of the external cause; Y99.8 Other external cause status
CPT/HCPCS: 93005